=== PATIENT | female | born 1965 | race Caucasian/White ===

== ENCOUNTER → 2020-01-26 11:01 | Outpatient (BNVA) | payer MEDICAID, SELFPAY | PROVIDERS: Family Provider Family Medicine; PCP Family Medicine; Visit Provider Orthopaedic Surgery | DX: M16.0 Bilateral primary osteoarthritis of hip (principal) | CPT/HCPCS: 73522; 73523 ==

== ENCOUNTER → 2020-05-08 13:36 | Outpatient (BNVA) | payer MEDICAID, SELFPAY | PROVIDERS: Family Provider Family Medicine; PCP Family Medicine; Referring Provider Family Medicine; Visit Provider Specialist | DX: M16.11 Unilateral primary osteoarthritis, right hip (principal) | CPT/HCPCS: 73502 ==

== ENCOUNTER 2020-05-26 10:00 | Outpatient (CLI) | payer MEDICAID, SELFPAY | END 2020-05-26 10:01 | disposition home or self-care (01) | LOC: OPS 05-10 14:50 | PROVIDERS: Visit Provider Internal Medicine Cardiovascular Disease | DX: Z01.810 Encounter for preprocedural cardiovascular examination (principal) | CPT/HCPCS: 93005 ==

== ENCOUNTER → 2020-06-19 15:50 | Outpatient (BNVA) | payer MEDICAID, SELFPAY | PROVIDERS: Visit Provider Specialist | DX: M16.11 Unilateral primary osteoarthritis, right hip (principal) | CPT/HCPCS: 73502 ==

== ENCOUNTER → 2020-06-30 10:08 | Outpatient (BNVA) | payer MEDICAID, SELFPAY | PROVIDERS: Visit Provider Specialist | DX: Z11.59 Encounter for screening for other viral diseases (principal) | CPT/HCPCS: 87635 ==

== ENCOUNTER 2020-07-04 10:15 | Observation (INO) | payer MEDICAID, SELFPAY ==
[2020-05-26 11:30] VITALS: BMI 40.7
--- NOTE | 2020-05-26 11:38 | ECG_ITS ---
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 Measurements Intervals [place] Rate: 77 P: 72 ND: 192 QRS: -27 QRSD: 82 T: 100 QT: 378 QTc: 430 Interpretive Statements SINUS RHYTHM POSSIBLE ANTERIOR MYOCARDIAL INFARCTION [30 ms Q WAVE IN V3/V4, OR R < 0.2 mV IN V4], OF INDETERMINATE AGE MODERATE T-WAVE ABNORMALITY, CONSIDER LATERAL ISCHEMIA [-0.1+ mV T WAVE IN I/aVL/V5/V6] Compared to ECG 04/24/2016 16:21:19 T-wave abnormality now present Possible ischemia now present Myocardial infarct finding still present Electronically Signed On 05-26-2020 20:51:17 CDT by Kariem Cruz M.D. [id number]
[2020-05-26 14:15] LABS: Anion Gap 17.4 (5-19); Blood Urea Nitrogen 14 mg/dL (6-20); Calcium 9.3 mg/dL (8.5-10.5); Carbon Dioxide 27 mmol/L (22-29); Chloride 91 mmol/L (98-107); Glomerular Filtration Rate 103.8 mL/min (90-130); Glucose 364 mg/dL (65-115); Osmolality Calculated 283 mOsm/kg (285-295); Potassium 4.4 mmol/L (3.5-5.1); Sodium 131 mmol/L (136-145)
[2020-06-30 08:42] VITALS: BMI 39.7
--- NOTE | 2020-06-30 08:55 | ECG_ITS ---
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 Measurements Intervals [place] Rate: 75 P: 68 CO: 194 QRS: -31 QRSD: 108 T: 93 QT: 370 QTc: 416 Interpretive Statements SINUS RHYTHM MARKED LEFT AXIS DEVIATION [QRS AXIS < -30] NONSPECIFIC T-WAVE ABNORMALITY Compared to ECG 05/26/2020 11:50:43 Left-axis deviation now present Myocardial infarct finding no longer present Possible ischemia no longer present T-wave abnormality still present Electronically Signed On 06-30-2020 20:39:29 CDT by Pita Espinal M.D. [id number]
--- NOTE | 2020-06-30 09:34 | ANES.PREANE2 ---
Pre-Anesthetic Assessment Pre-Anesthetic Assessment: Height/Weight: Height 1.65 m Weight 108.409 kg Preop Diagnosis: Severe DJD Right Hip Proposed Procedure: Operation Date: 07/04/20 07:00 Proposed Procedures p Total Hip Arthroplasty 90949 M16.11(Right) - Ruth Sloan MD Familial anesthetic complications: NOne Social: Social History: Tobacco and No alcohol Exam: Pre-Anes Outpt Exam: alert, oriented x 3, clear to auscultation bilaterally and regular rate & rhythm Airway: Cervical ROM: WNL MP: 4 Dentition: False Additional comments: Large neck circumference, receding mandible Pulmonary: Pulmonary: Sleep apnea (cpap) CV/HEM: CV/HEM: HTN GI: GI: GERD Metabolic: Metabolic: DM and Morbid obesity Musc/skel: Musc/skel: OA/DJD Anesthetic Plan: ASA status: 3 Anesthesia: General Risk of > 500 ml blood loss (7ml/kg in children): No PFSH Anesthesia PFSH: Medical History Cervical disc disorder Cervical radicular pain Cervical spinal stenosis Cervical spondylosis COPD (chronic obstructive pulmonary disease) Diabetes mellitus Dysuria GERD (gastroesophageal reflux disease) Greater trochanteric bursitis of both hips Hyperlipidemia Hyperlipidemia Hypertension Lumbar spinal stenosis Osteoarthritis of right hip Type 2 diabetes mellitus Surgical History History of carpal tunnel release History of hysterectomy Status post hemilaminotomy Data Anesthesia CBC & Chem 7: 05/26/20 11:45 Cardiac Studies: No Data to Display
[2020-06-30 09:49] LABS: Basophils % 0.6 %; Eosinophils # 0.2 10^3/uL (0.0-0.8); Eosinophils % 3.5 %; Hematocrit 49.2 % (37.0-47.0); Hemoglobin 16.6 g/dL (11.5-15.3); Lymphocytes # 1.7 10^3/uL (0.8-4.8); Lymphocytes % 26.4 %; Mean Corpuscular HGB Conc 33.7 g/dL (30.0-36.0); Mean Corpuscular Hemoglobin 31.3 pg (28.0-34.0); Mean Corpuscular Volume 92.8 fL (81-99); Mean Platelet Volume 12.7 fL (7.4-10.4); Monocytes # 0.5 10^3/uL (0.2-0.9); Monocytes % 7.4 %; Neutrophils # 4.05 10^3/uL (1.8-7.7); Neutrophils % 61.6 %; Nucleated Red Blood Cells % 0 %; Platelet Count 196 10^3/cmm (130-400); White Blood Count 6.6 10^3/uL (4.0-10.0)
[2020-06-30 10:10] LABS: Alanine Aminotransferase 146 U/L (0-33); Albumin Level 4.2 g/dL (3.5-5.2); Alkaline Phosphatase 189 IU/L (35-105); Aspartate Amino Transferase 96 U/L (0-32); Blood Urea Nitrogen 13 mg/dL (6-20); Calcium 9.5 mg/dL (8.5-10.5); Carbon Dioxide 28 mmol/L (22-29); Chloride 96 mmol/L (98-107); Globulin 3.4 g/dL (1.3-4.6); Glomerular Filtration Rate 86.9 mL/min (90-130); Glucose 396 mg/dL (65-115); Osmolality Calculated 295 mOsm/kg (285-295); Sodium 134 mmol/L (136-145); Total Bilirubin 0.2 mg/dL (0.15-1.2); Total Protein 7.6 g/dL (6.6-8.7)
[2020-06-30 10:11] LABS: Anion Gap 14.8 (5-19); Potassium 4.8 mmol/L (3.5-5.1)
[2020-06-30 10:15] LABS: Add Urine Microscopic? YES; Bilirubin Urine Neg (Negative); Blood Urine Neg (Negative); Glucose Urine UA 4+ (Normal); Ketones Urine Negative (Negative); Nitrate Urine Negative (Negative); Protein Urine Neg (Negative); Urine Appearance Cloudy (CLEAR); Urine Color Yellow (Yellow); Urobilinogen Urine Norm (Negative)
[2020-06-30 10:16] LABS: Add Urine Culture? Yes; Bacteria Urine 3+ /hpf; Leukocyte Esterase Urine Trace (Negative); RBC Urine 0-4 /hpf (0-2); WBC Urine 40-55 /hpf (0-5)
[2020-07-04] VITALS (17 sets, daily range): BP systolic 93–151; BP diastolic 58–95; PULSE 76–96; RESP 15–23; TEMP 36.1–37.1; O2SAT 89–99
[2020-07-04] MEDS: CELEcoxib 200 mg Capsule 400 MG PO (06:33)
[2020-07-04] MEDS: sodium chloride 0.9% 1,000 ML 30 ML IV (06:40)
[2020-07-04 06:43] LABS: Glucose Point of Care 279 mg/dL (70-110)
--- NOTE | 2020-07-04 06:45 | W.PM.OPSUD ---
Surgery/Procedure H&P Update DATE OF PROCEDURE: July 04, 2020 DATE H&P PERFORMED: 06/19/20 H&P UPDATE INFORMATION: I have reviewed H&P completed within last 30 days, I have examined patient prior to procedure and H&P is in [facility] EMR on date indicated CHANGES TO PREVIOUS DOCUMENTATION: Patient had a positive UTI with bacteria, but this has been treated with Bactrim. PREOP DIAGNOSIS: Severe DJD Right Hip PLANNED PROCEDURE: Operation Date: 07/04/20 07:00 Proposed Procedures p Total Hip Arthroplasty 86368 M16.11(Right) - Ruth Sloan MD
[2020-07-04] MEDS: vancomycin 1,000 MG in sodium chloride 0.9% 250 ML 250 MG IV ×2 (06:46→14:29)
--- NOTE | 2020-07-04 06:46 | P.ANESUD_ITS ---
Pre-Anesthetic Update Pre-Anesthetic Assessment: Date of Surgery/Procedure: 07/04/20 Preop Radha gnosis: Severe DJD Right Hip Proposed Procedure: Operation Date: 07/04/20 07:00 Proposed Procedures p Total Hip Arthroplasty 05091 M16.11(Right) - Ruth Sloan MD Any changes to Pre-Anesthetic Assessment?: No Last Intake: Intake Last Liquid Date 07/03/20 Last Liquid Time 20:00 Last Solid Date 07/03/20 Last Solid Time 20:00 Labs Last 48hrs: Laboratory Results - last 48 hr 07/04/20 06:29 POC Glucose 279 Vitals: Temperature 97 F L 07/04/20 06:11 Temperature Source Temporal Artery S can 07/04/20 06:11 Respiratory Rate 18 07/04/20 06:11 Oxygen Delivery Me thod 07/04/20 06:11 Exam: Pre-Anes Outpt Exam: alert, oriented x 3, clear to auscultation bilaterally and regular rate & rhythm Other Pertinent Information: Other Pertinent Information: Patient states her stress test was denied by insurance. She states her EKG from her first pre-op was probably incorrect because a lead kept falling off during recording. 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 A repeat EKG did not show prior DE. I informed patient that despite the atypical chest pain and normal EKG, she does have some risk factors associated with increased cardiac risk. Cardiac Studies: No Data to Display
[2020-07-04] MEDS: insulin regular-human 100 units/1 mL 10 UNIT IVP (06:59)
[2020-07-04] MEDS: vancomycin 1,000 MG SDV 1000 MG IRRIGATION (08:26)
[2020-07-04] MEDS: vancomycin 1,000 MG SDV 1000 MG XX (08:26)
--- NOTE | 2020-07-04 09:54 | XR_ITS ---
WS: [id number] PELVIS TECHNIQUE: 1 view(s) of the pelvis CLINICAL INFORMATION: Status post total hip arthroplasty COMPARISON: June 19, 2020 FINDINGS: Postoperative changes right JOSE. Moderate joint space narrowing left hip. Normal anatomic alignment. Right JOSE appears satisfactory. IMPRESSION: Recent postoperative right JOSE with normal alignment in good position.
--- NOTE | 2020-07-04 10:09 | P.OP_ITS ---
Operative Report Date of procedure: July 04, 2020 Pre-op Diagnosis: Severe DJD Right Hip Post-op diagnosis: same Post-op Findings: Severe degenerative osteoarthritic changes with osteophytes Procedure Done: Right total hip arthroplasty utilizing the following components: The Fromberg Accolade II total hip system with a Trident Tritanium acetabulum. Implants: Trident II Tritanium solid back acetabular shell size 52 mm by E alpha code with an MDM cementless liner inner diameter 42 mm by E alpha code. A size 4 Accolade II femoral stem with a 127 degree neck angle with a size 28 mm outer diameter by +0 mm femoral offset ceramic V40 and an MDM insert size 28 mm inner diameter by size 42E Specimens removed/disposition: Femoral head Pathology: other (Femoral head) Surgeon: Ruth Sloan Software Requirements Engineer: [facility] [place] [facility] [place] Anesthesia: General (intubated, ASA 3) Estimated blood loss (mL): 500 IV fluids (mL): 2,000 Urine output (mL): 150 Complications: None Findings: Postimplantation, the hip was stable at 90 degrees of flexion with 60 degrees of internal rotation and 20 degrees of adduction. It was also stable to toe hang and external rotation. Leg lengths appear to be restored. Condition: stable Disposition: PACU (Then to floor) Brief History: This 55-year-old woman presented with complaints of severe right hip pain interfering with her activities of daily living. At the time of her surgery. Nonoperative measures were unsuccessful in treating the patient's pain. She had significant limitations in walking. Procedure: Patient was brought to the operating theater. She was transferred to the operating room table and subsequently administered a general anesthetic intubated, ASA 3. Following administration of adequate anesthesia, the patient was placed in full lateral position and held in position with a pegboard. Also, the patient had minimal movement in her right lower extremity preoperatively. The patient's right lower extremity was then prepped and draped in usual fashion utilizing DuraPrep. It was draped free. Following prepping and draping a surgical pause was performed. At the time of surgical pause, we identified the site and side of surgery. We also identified the patient and preoperative surgical markings. Confirmation was made of equipment availability. Additionally, the patient's preoperative IV antibiotic, vancomycin 1 g, as well as TXA, was confirmed as being given in a timely fashion and being the appropri ate. TXA was again administered at the conclusion of the procedure. Following the surgical pause, an incision was made centering over the patient's greater trochanter continuing proximally and distally as necessary to allow access to the hip joint. Dissection continued through skin and soft tissues using a scalpel, and hemostasis was obtained using electrocautery. The tensor fascia jorge was identified and incised longitudinally. Sciatic nerve was identified and protected throughout the surgical procedure. Exposure was somewhat difficult secondary to the patient's obesity. A Charnley U retractor was placed after the tensor fascia jorge had been incised longitudinally, and the sciatic nerve had been identified. The hip was internally rotated, and the piriformis muscle was identified and tagged. Piriformis muscle along with the remaining short external rotators were then incised from the posterior aspect of the hip joint. These were retracted posteriorly. The capsule was entered in a T-type fashion with the edges being tagged. There were noted to be significant osteophytes and a second labrum about the acetabulum. These were removed, and the hip was dislocated Following hip dislocation, a femoral neck osteotomy was accomplished in the appropriate position. We then evaluated the acetabulum. The femur was retracted anteriorly. Soft tissues were retracted and further la mary kay was removed. We then began reaming. Reaming was accomplished sequentially. We reamed to a size 51 to allow for a size 52 acetabular shell. The acetabulum was impacted into position. The dome hole was filled. Also, we confirmed that the acetabular insert was completely seated prior to addressing the femur. After the acetabulum was in appropriate position, we placed the MDM liner without difficulty. The cup was noted to seat nicely and had good fixation upon impact. Attention was directed to the proximal femur. The proximal femur was lifted out of the wound. A canal finder was passed after the box chisel. The reamer was used to lateralize. We then began broaching. We broached sequentially and had excellent fit and fill with the size 4 Accolade II 127 degree neck angle stem. Initially, we did attempt to go to a size 5, however, this made the hip too tight even with the shortest neck combination. Therefore, we again placed the size 4 to an appropriate degree of fit and fill. Calcar reaming was then accomplished. A trial reduction was accomplished with a +0 mm femoral head inside the appropriate MDM insert. With this in place, we had the above stabilities, and at that time, we felt that we had restored leg lengths. We also felt that we had excellent stability noted above. Therefore, trial components were removed after the hip was dislocated. The size 4 Accolade II 127 degree neck angle hip stem was impacted into position without difficulty and onto this was placed a +0 mm offset femoral head with the appropriate MDM liner. The hip was then reduced without difficulty. With this construct, we had the above-noted stability. The stem was noted to seat nicely prior to placement of the femoral head. The wound was copiously irrigated with 20 mL of Betadine and 500 mL of normal saline mixed together. Subsequently, we suctioned this out and irrigated the wound copiously with lactated Ringer's. Following reduction of the prosthesis once again, we confirmed the stability of the hip. Leg lengths were also felt to be satisfactory. Being satisfied with the prosthesis, attention was directed to closure. Closure was accomplished with 0 Vicryl in the capsular tissues. Piriformis was reattached with 0 Vicryl as well. Tensor fascia jorge was closed with 0 Vicryl in an interrupted fashion. The subcutaneous tissues were closed with a combination of 0 Vicryl and 2-0 Monocryl. Vancomycin powder and a Surgi-Wolf thrombin mixture was placed into the wound as well. The skin was closed with a running 3-0 Monocryl followed by Exofin and Steri-Strips. This was covered with Telfa and Tegaderm. The patient was placed in an abduction pillow. She was returned the Recovery Room in a satisfactory condition and will be discharged to the floor for postoperative rehabilitation and pain management. There were no complications. Associated Problem List Diagnoses (1) Osteoarthritis of right hip: Qualifiers: Osteoarthritis type: primary Qualified Code(s): M16.11 - Unilateral primary osteoarthritis, right hip (2) Obesity, Class III, BMI 40-49.9 (morbid obesity):
[2020-07-04] MEDS: oxyCODONE 5 mg IR Tab/Cap PO (11:16)
--- NOTE | 2020-07-04 11:21 | P.CONIM_ITS ---
Providers/Reason For Consult Consulting Physican/Specialty*: Batsheva Saucedo, hospitalist Reason for Consult*: Insulin-dependent diabetes mellitus type 2 Requesting Physcian: Dr. Sloan, orthopedic surgery Attending Physician: Ruth Sloan MD History of Present Illness History of Present Illness Millie Leblanc is a 54 year old female with a past medical history of insulin- dependent diabetes mellitus that presented to the hospital today for scheduled total hip arthroplasty. Patient reported that she had been doing well prior to surgery with no recent issues. She denies any recent fever, no recent illness. Patient reports that she has not had any exposure to anyone under investigation are positive for COVID-19. Patient denies any recent chest pain or shortness of breath. She reports that she continues to smoke about 4 cigarettes/day but is not on any home oxygen. She denies any recent hospitalizations or procedures. Review of Systems Const: Denies: fever(s) or chills Eyes: Denies: change in vision ENMT: Denies: nasal congestion Card: Denies: chest pain, palpitations or edema Resp: Denies: dyspnea, productive cough or hemoptysis GI: Denies: abdominal pain, nausea, vomiting, diarrhea, constipation, hematochezia or melena : Denies: dysuria or hematuria Musc: Reports: extremity pain (Right lower extremity); Denies: muscle cramps Skin/Breast: Denies: rash or new lesions Neuro: Denies: headache(s) or dizziness Psych: Denies: anxiety or depression Endo: Denies: polyuria or hot flashes [place]/Lymph: Denies: easy bruising or easy bleeding Meds/Allergies Home Medications and Allergies Home Medications Medication Instructions Recorded Confirmed Last Taken Type diclofenac sodium 75 mg 75 mg PO BID 01/26/20 07/04/20 07/03/20 History tablet,delayed release doxepin 50 mg capsule 50 mg PO DAILY 01/26/20 07/04/20 07/03/20 History duloxetine 60 mg capsule,delayed 60 mg PO DAILY 01/26/20 07/04/20 07/03/20 History release sprinkle fluoxetine 20 mg capsule 20 mg PO DAILY 01/26/20 07/04/20 07/03/20 History fluticasone propionate 45 2 puff INHALATION BID 01/26/20 07/04/20 07/03/20 History mcg-salmeterol 21 mcg/actuation HFA inhaler insulin degludec 100 unit/mL (3 160 unit SUBCUT DAILY 01/26/20 07/04/20 07/03/20 20:00 History mL) subcutaneous pen 160 units lisinopril 20 mg tablet 20 mg PO DAILY 01/26/20 07/04/20 07/03/20 History pantoprazole 40 mg tablet,delayed 40 mg PO DAILY 01/26/20 07/04/20 07/03/20 History release pregabalin 200 mg capsule 200 mg PO DAILY 01/26/20 07/04/20 07/03/20 History cyclobenzaprine 10 mg PO TID 05/26/20 07/04/20 07/03/20 History insulin aspart U-100 [Novolog See Rx Instructions .ROUTE .COMPLEX 05/26/20 07/04/20 07/03/20 20:00 History Flexpen U-100 Insulin] 40 units oxycodone 20 mg PO QID PRN 05/26/20 07/04/20 07/03/20 History metformin 1,000 mg tablet 1,000 mg PO BID tab 06/12/20 07/04/20 07/03/20 08:00 History sulfamethoxazole 800 1 tab PO BID #20 tab 07/01/20 07/04/20 07/03/20 Rx mg-trimethoprim 160 mg tablet Allergies Allergy/AdvReac Type Severity Reaction Status Date / Time ibuprofen Allergy Intermediate ALGY-Hives Verified 06/19/20 16:26 naproxen [From Aleve] Allergy Intermediate ALGY-Rash Verified 06/19/20 16:26 Penicillins Allergy Intermediate ALGY-Hives Verified 06/19/20 16:26 Current Medications Current Medications Generic Name Dose Route Start Last Admin Trade Name Freq PRN Reason Stop Dose Admin Oxycodone HCl 5 mg 07/04/20 09:54 07/04/20 11:16 Oxycodone Ir PO 5 mg Q4H PRN Administration MODERATE PAIN PFSH Acute PFSH: Medical History (Updated 07/04/20 @ 11:25 by Batsheva Saucedo DO) Cervical spinal stenosis With cervical radicular pain and cervical spondylosis COPD (chronic obstructive pulmonary disease) GERD (gastroesophageal reflux disease) Greater trochanteric bursitis of both hips Hyperlipidemia Hypertension Lumbar spinal stenosis Osteoarthritis of right hip Type 2 diabetes mellitus Insulin-dependent Surgical History History of carpal tunnel release History of hysterectomy Status post hemilaminotomy Family History Other Unknown family medical history Social History (Updated 07/04/20 @ 11:26 by Batsheav Saucedo DO) Smoking and tobacco status: current every day smoker cigarettes Packs smoked per day: 0.25 Number of cigarettes per day: 1-5 Alcohol intake: never Substance/Drug Use: never Supplemental PFSH Information: Patient reports that she is adopted, unknown family medical history Vitals/I&O/Wt Last Vital Signs Temp 98.2 F 07/04/20 10:25 Pulse 84 07/04/20 10:25 Resp 18 07/04/20 11:16 BP 108/83 07/04/20 10:25 Pulse Ox 95 07/04/20 11:16 07/03/20 07/04/20 07/04/20 22:59 06:59 14:59 Intake Total 100 / 100 470 / 470 Output Total 800 / 800 Balance 100 / 100 -330 / -330 Physical Exam Const: COMMON NORMALS: patient oriented x3 and alert GENERAL APPEARANCE: cooperative ORIENTATION/CONSCIOUSNESS: Yes awake, Yes oriented to person, Yes oriented to place and Yes oriented to time HENMT: COMMON NORMALS: normocephalic and atraumatic HEAD & SCALP: normocephalic and atraumatic Eye: COMMON NORMALS: Equal, round and reactive pupils present PUPIL: Yes Equal, round and reactive pupils present Neck/C-Spine: COMMON NORMALS: supple GENERAL: Yes normal visual inspection Resp: COMMON NORMALS: normal respiratory effort and clear to auscultation bilaterally EFFORT & INSPECTION: Yes able to speak in complete sentences AUSCULTATION: clear to auscultation bilaterally, no rhonchi and no wheezes Cardio: COMMON NORMALS: regular rate, regular rhythm and No murmurs present (Cardio) RATE: regular rate RHYTHM: regular rhythm GI: COMMON NORMALS: Soft to palpation and non-tender INSPECTION: No abdomin al distension AUSCULTATION: Yes normoactive bowel sounds PALPATION: Yes Soft to palpation : BIMANUAL EXAM - ADNEXA, OTHER: Yes Other (Riddle catheter in place) Extremity: COMMON NORMALS: no clubbing, cyanosis or edema and no calf tenderness Neuro: COMMON NORMALS: patient oriented x3, CN's II-XII intact bilaterally, moves all extremities and no focal motor deficits SENSORIUM/ORIENTATION: Yes alert, Yes oriented to person, Yes oriented to place and Yes oriented to time SPEECH: speech normal Psych: COMMON NORMALS: mental status grossly normal and cooperative Skin: NARRATIVE SKIN EXAM: Postoperative dressing in place in the right hip Urinary Catheter Management^: f: Cath Placed During This Visit: yes Urinary Catheter Date of Insertion: 07/04/20 Urinary Catheter Time of Insertion: 07:25 A&P Assessment and plan (1) Osteoarthritis of right hip: Status post right total hip arthroplasty performed by Dr. Sloan Continue to follow with postoperative care Status: Acute Qualifiers: Osteoarthritis type: primary Qualified Code(s): M16.11 - Unilateral primary osteoarthritis, right hip (2) Diabetes mellitus: Patient reports being on Tresiba 160 units daily. This is a non-formulary medication and question if patient is having full absorption due to the large dose that she is taking at home. We will decrease her to 50 units but incrase it to twice daily to see if she has better absorption of medication. Will increase as needed but do not wish to cause any hypoglycemic event in the acute care setting. Sliding scale insulin, reports typically 30 to 40 units with meals. We will schedule her at 15 units with each meal and placed on a high-dose sliding scale insulin. 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
[2020-07-04 12:20] LABS: Glucose Point of Care 269 mg/dL (70-110)
[2020-07-04] MEDS: chlorhexidine gluconate 0.12% Btl 473 mL 30 ML MUCOUS MEM ×3 (12:39→20:49)
[2020-07-04] MEDS: TRAMadol 50 mg Tablet PO ×2 (12:39→17:35)
[2020-07-04] MEDS: oxyCODONE 5 mg IR Tab/Cap 20 MG PO ×2 (14:30→20:48)
[2020-07-04] MEDS: cyclobenzaprine 10 mg Tablet PO ×2 (14:30→20:48)
[2020-07-04] MEDS: enoxaparin 40 mg/0.4 mL Syringe SUBCUT (14:30)
[2020-07-04 17:06] LABS: Glucose Point of Care 259 mg/dL (70-110)
[2020-07-04] MEDS: calcium carbonate 500 mg Chew Tablet 1000 MG PO (17:34)
[2020-07-04] MEDS: metformin 500 mg Tablet 1000 MG PO (17:36)
[2020-07-04] MEDS: diclofenac 75 mg DR Tablet PO (17:36)
[2020-07-04] MEDS: sulfamethoxazole-trimeth DS 160-800 mg Tablet 1 TAB PO (17:36)
[2020-07-04] MEDS: iron polysaccharide complex 150 mg Capsule PO (17:36)
[2020-07-04] MEDS: insulin glargine 100 units/1 mL 50 UNIT SUBCUT (18:38)
[2020-07-04 21:11] LABS: Glucose Point of Care 354 mg/dL (70-110)
[2020-07-05] VITALS (8 sets, daily range): BP systolic 92–117; BP diastolic 60–70; PULSE 71–90; RESP 16–20; TEMP 36.4–37.1; O2SAT 92–96
[2020-07-05] MEDS: TRAMadol 50 mg Tablet PO ×2 (01:39→12:26)
--- NOTE | 2020-07-05 03:00 | ANE.PACU2 ---
Inpatient post-anesthesia follow up: Airway intact: Yes Vital signs: Temperature 98.7 F Pulse Rate 79 Respiratory Rate 17 Blood Pressure 92/60 Pulse Oximetry 95 Oxygen Delivery Me thod Room Air Oxygen Flow Rate 2 Fraction of Inspir ed Oxygen Hydration adequate: Yes Nausea and vomiting: No Pain level: 4 Mental status: Baseline
[2020-07-05 06:20] LABS: Basophils % 0.2 %; Eosinophils # 0.3 10^3/uL (0.0-0.8); Eosinophils % 3.1 %; Hematocrit 39.5 % (37.0-47.0); Hemoglobin 12.5 g/dL (11.5-15.3); Lymphocytes # 1.6 10^3/uL (0.8-4.8); Lymphocytes % 19.7 %; Mean Corpuscular HGB Conc 31.6 g/dL (30.0-36.0); Mean Corpuscular Hemoglobin 31.2 pg (28.0-34.0); Mean Corpuscular Volume 98.5 fL (81-99); Mean Platelet Volume 12.4 fL (7.4-10.4); Monocytes # 0.8 10^3/uL (0.2-0.9); Neutrophils # 5.41 10^3/uL (1.8-7.7); Neutrophils % 66.6 %; Nucleated Red Blood Cells % 0 %; Platelet Count 144 10^3/cmm (130-400); Red Blood Count 4.01 10^6/uL (4.1-5.3); Red Cell Distribution Width 12.9 % (12.1-15.1); White Blood Count 8.1 10^3/uL (4.0-10.0)
[2020-07-05] MEDS: insulin glargine 100 units/1 mL 50 UNIT SUBCUT (06:48)
[2020-07-05 07:07] LABS: Anion Gap 14.2 (5-19); Blood Urea Nitrogen 13 mg/dL (6-20); Calcium 8.6 mg/dL (8.5-10.5); Carbon Dioxide 21 mmol/L (22-29); Chloride 103 mmol/L (98-107); Glomerular Filtration Rate 57.6 mL/min (90-130); Glucose 231 mg/dL (65-115); Osmolality Calculated 285 mOsm/kg (285-295); Potassium 4.2 mmol/L (3.5-5.1); Sodium 134 mmol/L (136-145)
[2020-07-05] MEDS: sennosides-docusate Tablet 2 TAB PO (09:22)
[2020-07-05] MEDS: lisinopril 20 mg Tablet PO (09:23)
[2020-07-05] MEDS: metformin 500 mg Tablet 1000 MG PO (09:23)
[2020-07-05] MEDS: cyclobenzaprine 10 mg Tablet PO ×2 (09:23→14:59)
[2020-07-05] MEDS: iron polysaccharide complex 150 mg Capsule PO (09:24)
[2020-07-05] MEDS: duloxetine 60 mg Capsule PO (09:24)
[2020-07-05] MEDS: calcium carbonate 500 mg Chew Tablet 1000 MG PO (09:24)
[2020-07-05] MEDS: sulfamethoxazole-trimeth DS 160-800 mg Tablet 1 TAB PO (09:24)
[2020-07-05] MEDS: diclofenac 75 mg DR Tablet PO (09:24)
[2020-07-05] MEDS: multivitamin therapeutic Tablet 1 TAB PO (09:24)
[2020-07-05] MEDS: cholecalciferol (vitamin D3) 1,000 unit Tablet 1000 UNIT PO (09:25)
[2020-07-05] MEDS: pantoprazole DR 40 mg Tablet PO (09:25)
[2020-07-05] MEDS: chlorhexidine gluconate 0.12% Btl 473 mL 30 ML MUCOUS MEM ×2 (09:25→12:26)
[2020-07-05] MEDS: pregabalin 100 mg Capsule 200 MG PO (09:25)
[2020-07-05] MEDS: fluoxetine 20 mg Capsule PO (09:25)
--- NOTE | 2020-07-05 09:39 | PC.RESP ---
SMOKING CESSATION AND PULMONARY REHAB INFORMATION SENT TO PATIENT.
[2020-07-05 10:01] LABS: Glucose Point of Care 301 mg/dL (70-110)
[2020-07-05 10:01] LABS: Glucose Point of Care 220 mg/dL (70-110)
[2020-07-05 11:21] LABS: Glucose Point of Care 282 mg/dL (70-110)
--- NOTE | 2020-07-05 11:51 | P.PN_ITS ---
Subjective Subjective: Interval history: Patient awake sitting in the chair at time of exam this morning. She reported the pain is improved today. Discussed with her plan for continued insulin dosing at home, may consider transitioning to split twice a day dosing with long-acting insulin, monique Vitals/I&O/Wt Last Vital Signs Temp 98.7 F 07/05/20 11:26 Pulse 86 07/05/20 11:26 Resp 20 H 07/05/20 11:26 BP 110/70 07/05/20 11:26 Pulse Ox 95 07/05/20 07:45 07/04/20 07/05/20 07/05/20 22:59 06:59 14:59 Intake Total 700 / 1170 600 / 1770 Output Total 1000 / 1800 2400 / 4200 Balance -300 / -630 -1800 / -2430 Physical Exam Const: COMMON NORMALS: patient oriented x3 and alert GENERAL APPEARANCE: cooperative ORIENTATION/CONSCIOUSNESS: Yes awake, Yes oriented to person, Yes oriented to place and Yes oriented to time HENMT: COMMON NORMALS: normocephalic and atraumatic HEAD & SCALP: normocephalic and atraumatic Eye: COMMON NORMALS: Equal, round and reactive pupils present PUPIL: Yes Equal, round and reactive pupils present Neck/C-Spine: COMMON NORMALS: supple GENERAL: Yes normal visual inspection Resp: COMMON NORMALS: normal respiratory effort and clear to auscultation bilaterally EFFORT & INSPECTION: Yes able to speak in complete sentences AUSCULTATION: clear to auscultation bilaterally, no rhonchi and no wheezes Cardio: COMMON NORMALS: regular rate, regular rhythm and No murmurs present (Cardio) RATE: regular rate RHYTHM: regular rhythm GI: COMMON NORMALS: Soft to palpation and non-tender INSPECTION: No abdominal distension AUSCULTATION: Yes normoactive bowel sounds PALPATION: Yes Soft to palpation : BIMANUAL EXAM - ADNEXA, OTHER: Yes Other (Riddle catheter in place) Extremity: COMMON NORMALS: no clubbing, cyanosis or edema and no calf tenderness Neuro: COMMON NORMALS: patient oriented x3, CN's II-XII intact bilaterally, moves all extremities and no focal motor deficits SENSORIUM/ORIENTATION: Yes alert, Yes oriented to person, Yes oriented to place and Yes oriented to time SPEECH: speech normal Psych: COMMON NORMALS: mental status grossly normal and cooperative Skin: NARRATIVE SKIN EXAM: Postoperative dressing in place in the right hip Urinary Catheter Management^: f: Cath Placed During This Visit: yes, but has since been removed by the nurse Reason for Continuing Indwelling Catheter: Decision to DC Catheter Urinary Catheter Date of Insertion: 07/04/20 Urinary Catheter Time of Insertion: 07:25 Date Urinary Catheter Removed: 07/05/20 Time Urinary Catheter Discontinued: 06:15 Data : 07/05/20 05:48 07/05/20 05:48 A&P Assessment and plan (1) Osteoarthritis of right hip: Status post right total hip arthroplasty performed by Dr. Sloan Continue to follow with postoperative care Status: Acute Qualifiers: Osteoarthritis type: primary Qualified Code(s): M16.11 - Unilateral primary osteoarthritis, right hip (2) Diabetes mellitus: Patient reports being on Tresiba 160 units daily. Converted to Lantus and increase to 60 units twice daily at this time as Tresiba is a nonformulary medication. 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
[2020-07-05] MEDS: enoxaparin 40 mg/0.4 mL Syringe SUBCUT (12:25)
--- NOTE | 2020-07-05 13:49 | PM.DCS ---
Discharge Providers Date of Admission: 07/04/20 10:15 Date of Discharge: July 05, 2020 Attending Provider at Admission: Ruth Sloan MD Attending Provider at Discharge: Ruth Sloan MD Diagnoses at Discharge Discharge Diagnosis (1) Osteoarthritis of right hip: Status: Acute Qualifiers: Osteoarthritis type: primary Qualified Code(s): M16.11 - Unilateral primary osteoarthritis, right hip (2) Diabetes mellitus: Status: Acute Problem details: Poorly controlled, insulin-dependent Qualifiers: Diabetes mellitus type: type 2 Diabetes mellitus detention insulin use: with long chain dyeing machine operator use Diabetes mellitus complication status: with other specified complication Qualified Code(s): E11.69 - Type 2 diabetes mellitus with other specified complication; Z79.4 - buttermaker continuous churn (current) use of insulin (3) Obesity, Class III, BMI 40-49.9 (morbid obesity): Status: Acute (4) Hyperlipidemia: Status: Acute Qualifiers: Hyperlipidemia type: mixed hyperlipidemia Qualified Code(s): E78.2 - Mixed hyperlipidemia Reason for Visit Reason for Visit: Osteoarthritis Right Hip Brief History: Patient presented for right total hip arthroplasty Hospital Course Hospital Course: Admitted for same-day surgery. She underwent the following procedure: Right total hip arthroplasty utilizing the following components: The Anitha Accolade II total hip system with a Trident Tritanium acetabulum with a Trident II Tritanium solid back acetabular shell size 52 mm by E alpha code with an MDM cementless liner inner diameter 42 mm by E alpha code. A size 4 Accolade II femoral stem with a 127 degree neck angle with a size 28 mm outer diameter by +0 mm femoral offset ceramic V40 and an MDM insert size 28 mm inner diameter by size 42E. Patient was placed on the floor under observation following the surgical procedure. She worked with physical therapy. On the first postoperative day, the patient appeared ready for discharge. At the time she was seen, she was told to work with physical therapy on getting in and out of the car and home exercises. Plans were made for her discharge home that day. Discharge Summary: Patient will be discharged home on postoperative day 1. Unfortunately, her insurance will not cover home physical therapy, but she has exercises and will continue to work on these at home. Physical Exam Const: COMMON NORMALS: no acute distress, average body habitus, patient oriented x3 and alert GENERAL APPEARANCE: cooperative and comfortable ORIENTATION/CONSCIOUSNESS: Yes awake HENMT: COMMON NORMALS: normocephalic and atraumatic HEAD & SCALP: normocephalic and atraumatic Eye: GENERAL EYE: appearance normal, both eyes and all related structures Chest: COMMONS NORMALS: normal inspection of the chest Resp: COMMON NORMALS: normal respiratory effort EFFORT & INSPECTION: Yes able to speak in complete sentences and Yes symmetric chest movement Extremity: RIGHT LOWER EXTREMITY: Yes hip joint (Incision is evaluated. There is no evidence of drainage. There is minimal to no bruising or swelling. The dressing is intact.) Right hip: Yes inspection (Patient is able to get up and down from chair easily.), Yes palpation (Minimal to no tenderness.), Yes ROM (Not evaluated.) and Yes neurovascular exam (Intact distal to the surgical site with no evidence of DVT.) Neuro: COMMON NORMALS: patient oriented x3 SENSORIUM/ORIENTATION: Yes alert Psych: COMMON NORMALS: mental status grossly normal APPEARANCE: Yes grossly normal ATTITUDE: Yes calm and Yes engaged ATTENTION/CONCENTRATION: Yes attention grossly intact Skin: COMMON NORMALS: no rashes or lesions noted GENERAL SKIN EXAM: no rashes or lesions noted Urinary Catheter Management^: f: Cath Placed During This Visit: yes, but has since been removed by the nurse Reason for Continuing Indwelling Catheter: Decision to DC Catheter Urinary Catheter Date of Insertion: 07/04/20 Urinary Catheter Time of Insertion: 07:25 Date Urinary Catheter Removed: 07/05/20 Time Urinary Catheter Discontinued: 06:15 Discharge Data Data Completed and Pending: Completed Studies During Hospitalization Category Date Time Status XR pelvis 1-2V* 7 2170 Routine Exams 07/04/20 09:54 Completed Pending at discharge Category Date Time Status Complete Blood Co unt w/Auto Lab 07/06/20 04:00 Uncollected Complete Blood Co unt w/Auto Lab 07/07/20 04:00 Uncollected Pathology: Surgic al [PTH] Routine Pth 07/04/20 09:43 Received Labs from last 24 hours 07/05/20 07/05/20 07/05/20 11:15 09:40 06:30 WBC RBC Hgb Hct MCV MCH MCHC RDW Plt Count MPV Neut % (Auto) Lymph % (Auto) [place] % (Auto) Eos % (Auto) Baso % (Auto) Neut # (Auto) Lymph # (Auto) [place] # (Auto) Eos # (Auto) Baso # (Auto) Nucleated RBC % (a uto) Nucleated RBCs # Sodium Potassium Chloride Carbon Dioxide Anion Gap BUN Creatinine GFR Calculation Glucose POC Glucose 282 301 220 Calculated Osmolal ity Calcium 07/05/20 07/05/20 07/04/20 05:48 05:48 21:06 WBC 8.1 RBC 4.01 L Hgb 12.5 Hct 39.5 MCV 98.5 MCH 31.2 MCHC 31.6 RDW 12.9 Plt Count 144 MPV 12.4 H Neut % (Auto) 66.6 Lymph % (Auto) 19.7 [place] % (Auto) 10.0 Eos % (Auto) 3.1 Baso % (Auto) 0.2 Neut # (Auto) 5.41 Lymph # (Auto) 1.6 [place] # (Auto) 0.8 Eos # (Auto) 0.3 Baso # (Auto) 0.0 Nucleated RBC % (a uto) 0 Nucleated RBCs # 0.0 Sodium 134 L Potassium 4.2 Chloride 103 Carbon Dioxide 21 L Anion Gap 14.2 BUN 13 Creatinine 1.0 H GFR Calculation 57.6 L Glucose 231 H POC Glucose 354 Calculated Osmolal ity 285 Calcium 8.6 07/04/20 16:53 WBC RBC Hgb Hct MCV MCH MCHC RDW Plt Count MPV Neut % (Auto) Lymph % (Auto) [place] % (Auto) Eos % (Auto) Baso % (Auto) Neut # (Auto) Lymph # (Auto) [place] # (Auto) Eos # (Auto) Baso # (Auto) Nucleated RBC % (a uto) Nucleated RBCs # Sodium Potassium Chloride Carbon Dioxide Anion Gap BUN Creatinine GFR Calculation Glucose POC Glucose 259 Calculated Osmolal ity Calcium Vitals: Last Vital Signs Temp 98.7 F 07/05/20 11:26 Pulse 86 07/05/20 11:26 Resp 20 H 07/05/20 11:26 BP 110/70 07/05/20 11:26 Pulse Ox 95 07/05/20 07:45 Discharge Plan Discharge Patient Disposition: Home Condition: Stable Prescriptions: New tramadol 50 mg Tablet 50 mg PO Q4H PRN (Reason: Moderate Pain) 7 Days Qty: 50 RF: 0 acetaminophen 500 mg Tablet 1,000 mg PO Q8H 15 Days Qty: 1 RF: 0 Continued Tresiba FlexTouch U-100 100 unit/mL (3 mL) insulin pen 160 unit SUBCUT DAILY RF: 0 Advair HFA 45-21 mcg/actuation HFA aerosol inhaler 2 puff INHALATION BID RF: 0 diclofenac sodium 75 mg tablet,delayed release (DR/EC) 75 mg PO BID RF: 0 doxepin 50 mg capsule 50 mg PO DAILY RF: 0 duloxetine 60 mg capsule, delayed rel sprinkle 60 mg PO DAILY RF: 0 fluoxetine 20 mg capsule 20 mg PO DAILY RF: 0 lisinopril 20 mg tablet 20 mg PO DAILY RF: 0 pregabalin [Lyrica] 200 mg capsule 200 mg PO DAILY RF: 0 pantoprazole 40 mg tablet,delayed release (DR/EC) 40 mg PO DAILY RF: 0 metformin 1,000 mg tablet 1,000 mg PO BID RF: 0 sulfamethoxazole-trimethoprim [Bactrim DS] 800-160 mg tablet 1 tab PO BID Qty: 20 RF: 0 cyclobenzaprine 10 mg tablet 10 mg PO TID RF: 0 insulin aspart U-100 [Novolog Flexpen U-100 Insulin] 100 unit/mL (3 mL) insulin pen See Rx Instructions .ROUTE .COMPLEX RF: 0 oxycodone 20 mg tablet 20 mg PO QID PRN (Reason: Pain) RF: 0 Discharge Orders: Discharge Order (Routine); Ordered 07/05/20 Ordered By: Ruth Sloan Other Ambulatory Orders: DME: Walker (Order) Location: None Selected Ordered By: Ruth Sloan Referrals: [facility] [place] Home Care ([facility]) [Outside] Ruth Sloan MD [Physician] - 07/19/20 Discharge Diet: Advance as tolerated and Usual diet Discharge Activity: Limit activity as instructed, Use walker/crutches as instructed and As per PT/OT instructions Activity Restrictions/Additional Instructions: Posterior hip precautions to be continued for 3 full months. You may remove or change dressing as needed. Weightbearing as tolerated with walker. 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
--- NOTE | 2020-07-05 14:09 | PC.CHAP ---
Pastoral Care Encounter/Spiritual Assessment Type of Contact [] Declined locksmith visit [] Patient/Family/Request visit [] Outpatient visit [] Follow-up visit [] Physician referral [] Code/Alert [X] Routine visit [] Staff referral [] Actively dying [] Patient sleeping [] Family support [] [] Out of room [] Palliative care [] [] Receiving care in room [] Pre-surgical visit [] Trauma [] Long length of stay [] ICU visit [] Other: Relational/Emotional Strength [] Patient feels connected with others/family/visitors/staff [] Distress [] Loneliness/isolation [] Abandonment Spirituality of Patient [] Person of Komal [] Attends Roman Catholic of their Komal [] Believes in Prayer [] Reads Bible or Orthodox materials [] There are Spiritual issues to be addressed Consulting Solution Manager Interventions [] Prayer [] Active listening [] Non-anxious presence [] Spiritual/emotional support [] Crisis/trauma care [] Spiritual counseling [] Bereavement support [] Provided bereavement packet [] Provided Bible/devotional materials [] Provided toy/stuffed animal, coloring book to patient or family member [] Provided Communion [] Anointing/[place] [] Salvation [] Completed spiritual assessment [] Other: Impact on Illness or Injury [] Angry [] Fearful [] Anxious [] Often cries [] Exhaustion [] Unable to work [] Unable to attend christian [] Unable to walk/stand [] Unable to read [] Unable to drive [] Unable to eat/drink [] Unable to sleep [] Unable to be with family [] Patient intubated [] Other: Summary Time spent with patient
[2020-07-05] MEDS: oxyCODONE 5 mg IR Tab/Cap 20 MG PO (15:38)
== END 2020-07-05 16:26 | disposition home or self-care (01) ==
LOC: MEDSURG 10:30
PROVIDERS: Anesthesiology; Admitting Provider Specialist; Visit Provider Specialist
PROC: (CPT 27130; principal; 2020-07-04 07:00)
DX: M16.11 Unilateral primary osteoarthritis, right hip (principal); E11.69 Type 2 diabetes mellitus with other specified complication; E66.01 Morbid (severe) obesity due to excess calories; Z68.39 Body mass index [BMI] 39.0-39.9, adult; E78.2 Mixed hyperlipidemia; Z79.4 Long term (current) use of insulin; G47.30 Sleep apnea, unspecified; I10 Essential (primary) hypertension
CPT/HCPCS: 27130; 12345; 36415; 36416; 51702; 72170; 80048; 80053; 81001; 82962; 85025; 87077; 87086; 87186; 87641; 88304; 93005; 96365; 96366; 96372; 97110; 97116; 97161; 97165; 97530; C1776; G0378; J0131; J1650; J1815 ×2; J2250; J2405; J2704; J2765; J3010; J3370; J3490; J7030; J7050

== ENCOUNTER → 2020-07-19 11:59 | Outpatient (BNVA) | payer MEDICAID, SELFPAY | PROVIDERS: Visit Provider Specialist | DX: Z96.641 Presence of right artificial hip joint (principal) | CPT/HCPCS: 73502 ==

== ENCOUNTER → 2020-08-23 07:59 | Outpatient (BNVA) | payer MEDICAID, SELFPAY | PROVIDERS: Visit Provider Specialist | DX: Z47.1 Aftercare following joint replacement surgery (principal); Z96.649 Presence of unspecified artificial hip joint | CPT/HCPCS: 73502 ==

== ENCOUNTER → 2020-09-05 15:06 | Outpatient (BNVA) | payer MEDICAID, SELFPAY | PROVIDERS: Visit Provider Orthopaedic Surgery | DX: M43.17 Spondylolisthesis, lumbosacral region (principal) | CPT/HCPCS: 72114 ==

== ENCOUNTER 2020-09-13 16:12 | Outpatient (CLI) | payer MEDICAID, SELFPAY | END 2020-09-13 16:13 | disposition home or self-care (01) | LOC: RAD 06-22 12:24 | PROVIDERS: Visit Provider Specialist | DX: M17.0 Bilateral primary osteoarthritis of knee (principal) | CPT/HCPCS: 73560; 73565 ==

== ENCOUNTER → 2020-12-27 15:34 | Outpatient (BNVA) | payer MEDICAID, SELFPAY | PROVIDERS: Visit Provider Specialist | DX: Z98.890 Other specified postprocedural states (principal); Z96.641 Presence of right artificial hip joint; M16.11 Unilateral primary osteoarthritis, right hip | CPT/HCPCS: 73502 ==

== ENCOUNTER 2021-02-05 13:29 | Outpatient (CLI) | payer MEDICAID, SELFPAY ==
--- NOTE | 2021-02-05 13:41 | MR_ITS ---
WS: [id number] MRI LUMBAR SPINE NONCONTRAST TECHNIQUE: Sagittal T1, T2 and STIR imaging. Axial T1 and T2 imaging. CLINICAL INFORMATION: R52 - Pain, unspecified COMPARISON: MRI 2016 FINDINGS: Mild lumbar curve. No acute compression. Slight anterolisthesis L4 on L5. Prior laminectomy defects L 3-4. L1-L2: Mild disc bulging. Slight impingement right subarticular recess and traversing right L2 nerve root. Mild facet arthropathy. Small right foraminal protrusion with mild right foraminal narrowing. L2-L3: Mild annular bulging. Slight effacement of the ventral thecal sac. Mild facet arthropathy. Spi nal canal and foramen are patent. L3-L4: Mild annular bulging with slight narrowing of the right subarticular recess. Moderate facet ar thropathy. Spinal canal and foramen are patent. Prior laminectomy defects. L4-L5: Grade 1 anterolisthesis L4 on L5. Mild central canal stenosis with mild annular bulging and mo derate facet arthropathy. Narrowing of the right greater than left subarticular recess. Foramen are p atent. L5-S1: Mild annular bulging. Slight contact of the traversing left S1 nerve root. Spinal canal and fo ramen are patent. Moderate facet arthropathy. Visualized pelvic bony structures: Normal. Paravertebral soft tissues: Normal. Central canal stenosis on the infusion nurse imaging cervical spine C3-C6. MR/MR lumbar spine wo con* [id number] IMPRESSION: 1. Mild lumbar curve. No acute compression. No high-grade central canal stenos is. 2. Mild central canal stenosis L4-5 with grade 1 anterolisthesis. This is abdiel lar to 2016. 3. Right subarticular and proximal foraminal protrusion L1-2 impinges the nevin ersing right L2 nerve root with contact of the exiting right L1 nerve root. Rec ommend correlation for L1 and L2 nerve root symptoms. This is progressed from 2 016. 4. Mild annular bulging L3-4 with moderate facet arthropathy and slight narrow ing of the right greater than left subarticular recess. Prior laminectomy defec ts at this level. 5. Left eccentric disc bulge L5-S1 slightly contacts the left S1 nerve root. 6. Mild to moderate facet arthropathy L3-L5. 7. Mild central canal stenosis in cervical spine on infusion nurse imaging. This can be further evaluated with cervical spine MRI.
== END 2021-02-05 13:30 | disposition home or self-care (01) ==
PROVIDERS: Visit Provider Orthopaedic Surgery
DX: M48.061 Spinal stenosis, lumbar region without neurogenic claudication (principal); M47.816 Spondylosis without myelopathy or radiculopathy, lumbar region; M51.27 Other intervertebral disc displacement, lumbosacral region
CPT/HCPCS: 72148

== ENCOUNTER → 2021-11-07 14:22 | Outpatient (BNVA) | payer MEDICAID, SELFPAY | PROVIDERS: Visit Provider Specialist | DX: Z96.641 Presence of right artificial hip joint (principal) | CPT/HCPCS: 73502 ==

== ENCOUNTER → 2021-12-04 14:09 | Outpatient (BNVA) | payer MEDICAID, SELFPAY | PROVIDERS: PCP Nurse Practitioner Family; Visit Provider Orthopaedic Surgery | DX: Z01.818 Encounter for other preprocedural examination (principal); Z20.822 Contact with and (suspected) exposure to COVID-19 | CPT/HCPCS: 87635 ==

== ENCOUNTER 2021-12-10 14:15 | Inpatient (IN) | payer MEDICAID, SELFPAY ==
[2021-12-06 13:17] VITALS: BMI 36.6
--- NOTE | 2021-12-06 13:39 | ECG_ITS ---
[facility] Test Date: 2021-12-06 Pat Name: Millie Leblanc Department: Room: Gender: Female Reliability Technicians: : 1965 Requested By: Raghav Anton Order Number: [id number] Debi MD: aKrime Cruz M.D. Measurements Intervals [place] Rate: 78 P: 62 VT: 198 QRS: -41 QRSD: 94 T: 94 QT: 354 QTc: 406 Interpretive Statements SINUS RHYTHM LEFT AXIS DEVIATION [QRS AXIS < -30] POSSIBLE ANTERIOR MYOCARDIAL INFARCTION , OF INDETERMINATE AGE [30 ms Q WAVE IN V3/V4, OR R < 0.2 mV IN V4] Compared to ECG 06/30/2020 09:05:13 Myocardial infarct finding now present T-wave abnormality no longer present Electronically Signed On 12-07-2021 6:06:02 VEHICLE MECHANIC by Karime Cruz M.D. [email or web address]
[2021-12-06 14:19] LABS: Blood Urea Nitrogen 10 mg/dL (6-20); Calcium 9.9 mg/dL (8.5-10.5); Carbon Dioxide 22 mmol/L (22-29); Chloride 100 mmol/L (98-107); Glomerular Filtration Rate 165.1 mL/min (90-130); Glucose 100 mg/dL (65-115); Osmolality Calculated 279 mOsm/kg (285-295); Sodium 135 mmol/L (136-145)
[2021-12-06 14:21] LABS: Anion Gap 17.4 (5-19); Potassium 4.4 mmol/L (3.5-5.1)
--- NOTE | 2021-12-06 14:41 | P.ANESASSM_ITS ---
Pre-Anesthetic Assessment Height/Weight: Height 1.65 m Weight 99.79 kg Preop Diagnosis: Severe DJD Right Hip Operation Date: 12/10/21 07:00 Proposed Procedures p Posterior Lumbar Interbody Fusion/l4/5/M43.16 spo,lum/M48.062 spinal stenosis(Not Applicable) - Mateo Hester DO Familial anesthetic complications: None Was Beta Gm taken within 24 hours: N/A Was Clonidine taken within 24 hours: N/A Social Tobacco and No alcohol Airway Submandibular: within normal limits Cervical ROM: within normal limits Mallampati: Class II Dentition: false Pulmonary Chronic Obstructive Pulmonary Disease and Sleep Apnea GI Gastroesophageal Reflux Disease Metabolic Diabetes Mellitus and Morbid Obesity [facility]/skel Lower Back Pain Anesthetic Plan ASA status: 3 Anesthesia: General Other: A.line Risk of > 500 ml blood loss (7ml/kg in children): Yes, adequate IV access and fluids planned Medications/Allergies Home Medications Medication Instructions Recorded Confirmed Last Taken Type diclofenac sodium 75 mg 75 mg PO BID 01/26/20 12/06/21 07/03/20 History tablet,delayed release doxepin 50 mg capsule 50 mg PO DAILY 01/26/20 12/06/21 07/03/20 History duloxetine 60 mg capsule,delayed 60 mg PO DAILY 01/26/20 12/06/21 07/03/20 History release sprinkle fluoxetine 20 mg capsule 20 mg PO DAILY 01/26/20 12/06/21 07/03/20 History fluticasone propionate 45 2 puff INHALATION BID 01/26/20 12/06/21 07/03/20 History mcg-salmeterol 21 mcg/actuation HFA inhaler (Advair HFA) pantoprazole 40 mg tablet,delayed 40 mg PO DAILY 01/26/20 12/06/21 07/03/20 History release pregabalin 200 mg capsule (Lyrica) 200 mg PO DAILY 01/26/20 12/06/21 07/03/20 History cyclobenzaprine 10 mg tablet 10 mg PO TID 05/26/20 12/06/21 07/03/20 History oxycodone 20 mg tablet 20 mg PO QID PRN 05/26/20 12/06/21 07/03/20 History metformin 1,000 mg tablet 1,000 mg PO BID tab 06/12/20 12/06/21 07/03/20 08:00 History diazepam 5 mg tablet (Valium) 5 mg PO BID PRN 1 Days #1 tab 01/29/21 12/06/21 Unknown Rx dulaglutide 3 mg/0.5 mL 3 mg SUBCUT DIRECTED 04/26/21 12/06/21 Unknown History subcutaneous pen injector (Trulicity) Allergies Allergy/AdvReac Type Severity Reaction Status Date / Time ibuprofen Allergy Intermediate ALGY-Hives Verified 11/20/21 13:16 naproxen [From Aleve] Allergy Intermediate ALGY-Rash Verified 11/20/21 13:16 Penicillins Allergy Intermediate ALGY-Hives Verified 11/20/21 13:16 lisinopril AdvReac ALGY-Swell Verified 11/20/21 13:18 Lip/Tongue/Throat [facility] Anesthesia Medical History Cervical spinal stenosis With cervical radicular pain and cervical spondylosis COPD (chronic obstructive pulmonary disease) GERD (gastroesophageal reflux disease) Greater trochanteric bursitis of both hips Hyperlipidemia Hypertension Lumbar spinal stenosis Osteoarthritis of right hip Type 2 diabetes mellitus Insulin-dependent Surgical History History of carpal tunnel release History of hysterectomy Status post hemilaminotomy Family History Other Unknown family medical history Social History Smoking and tobacco status: current every day smoker cigarettes Packs smoked per day: 0.25 Alcohol intake: never Data Anesthesia : 12/06/21 13:40 BMP 12/06/21 13:40 Sodium 135 L Potassium 4.4 Chloride 100 Carbon Dioxide 22 BUN 10 Creatinine 0.4 L Glucose 100 Calcium 9.9 Cardiac Studies: No Data to Display
[2021-12-10] VITALS (16 sets, daily range): BP systolic 74–133; BP diastolic 55–87; PULSE 80–96; RESP 14–20; TEMP 35.8–36.9; O2SAT 90–99; BMI 36.6
--- NOTE | 2021-12-10 | SCC_ITS ---
Procedure: 1. L4/5 Interbody fusion with posterolateral fusion 2. Instrumentation L4/5 3. Cage at L4/5 4. Laminectomy L4 for decompression of nerve 5. use of autograft from same incision 6. allograft 7. Bone marrow aspirate from right iliac crest 8. use of computer navigation/ stereotactic for spine 13 seconds of fluoroscopic guidance, for a cumulative dose of 50.5 mGy, was provided to Dr. Hester by the radiology department. C-arm images of the lumbar spine were saved for the patient's permanent record. MERT
[2021-12-10 08:46] LABS: Glucose Point of Care 143 mg/dL (70-110)
--- NOTE | 2021-12-10 10:02 | W.PM.OPSUD ---
Surgery/Procedure H&P Update DATE OF PROCEDURE: December 10, 2021 DATE H&P PERFORMED: 11/20/21 PREOP DIAGNOSIS: Spondylolisthesis L4-5 with lumbar radiculopathy PLANNED PROCEDURE: Operation Date: 12/10/21 10:20 Proposed Procedures p Posterior Lumbar Interbody Fusion/l4/5/M43.16 spo,lum/M48.062 spinal stenosis(Not Applicable) - Mateo Hester, DO
[2021-12-10] MEDS: clindamycin 900 MG/50 ML PREMIX 100 MG IV ×2 (11:00→17:53)
[2021-12-10] MEDS: heparin, porcine 1,000 unit/mL INJ 10 mL 10000 UNIT INJECTION (12:13)
[2021-12-10] MEDS: vancomycin 1,000 MG SDV 1000 MG XX (12:14)
--- NOTE | 2021-12-10 13:57 | XR_ITS ---
WS: [id number] Lumbar spine, C-arm fluoroscopy in the OR, 12/10/2021 Clinical Data: OR PICS LUMBAR FUSION Comparison: None. Findings: Dr. Hester performed a posterior lumbar fusion. XR/XR lumbar spine 1V [id number] Impression: Posterior lumbar fusion.
--- NOTE | 2021-12-10 14:03 | P.OP_ITS ---
Operative Report Date of procedure: December 10, 2021 Pre-op diagnosis: Preop Diagnosis Spondylolisthesis L4-5 with lumbar radiculopathy Post-op diagnosis: same Post-op findings: 1. L4/5 Interbody fusion with posterolateral fusion 2. Instrumentation L4/5 3. Cage at L4/5 4. Laminectomy L4 for decompression of nerve 5. use of autograft from same incision 6. allograft 7. Bone marrow aspirate from right iliac crest 8. use of computer navigation/ stereotactic for spine Surgeon: Mateo Hester Hot Strip Mill Inspector: Elmo Lucero Hot Strip Mill Inspector: The surgical supervisor, Elmo Lucero, PAC was needed for his expertise under the microscope. He was important and necessary throughout the procedure to complete in a safe and timely manner. He assisted with patient positioning prepping and draping tissue retraction suctioning of the operative field protection of the dural sac and tissue closure Estimated blood loss (mL): 500 Procedure: 1. L4/5 Interbody fusion with posterolateral fusion 2. Instrumentation L4/5 3. Cage at L4/5 4. Laminectomy L4 for decompression of nerve 5. use of autograft from same incision 6. allograft 7. Bone marrow aspirate from right iliac crest 8. use of computer navigation/ stereotactic for spine Patient is brought to the operative suite. After undergoing anesthesia, the patient had neuro monitoring attached. Patient was then placed in the prone po sition on the Goyo table. All areas of impingement were well-padded. Patient was then prepped and draped in the normal sterile fashion. Skin incision was then made over the L4/5 space. Subperiosteal dissection was made out to the transverse processes of L4 and L5. Once the exposure was complete attention was then brought to bone marrow aspirate. The [employer] bone marrow aspirate kit was used to aspirate bone marrow aspirate from right iliac crest. this was done by using the sharp probe to open up the bone. Aspiration was performed and then the blunt probe was then used to dissect down to through the bone tunnel. An aspirating well drawn back a millimeter approximately 20 cc of bone marrow aspirate was used. Admixed with the allograft and autograft bone that will be used. Next attention was brought to placing the fiducial for the computer navigation. A stab incision was made into the right side of the iliac crest. And then 2 pins were placed. The fiducial was attached to the 2 pins. And then the C-arm was brought in and spun around the patient. Information from the C-arm was then loaded into the fiducial. Tension was brought to placing the pedicle screws. The technique for placing the pedicle screws was to use a drill followed by the gearshift probe linked to the computer navigation Followed by the ball probe to feel the superior inferior medial lateral henriquez of the pedicles. Then placement of the screws linked to computer navigation. Was done at each pedicle. Screws were placed at L4 bilaterally and L5. Next attention was brought to performing the laminectomy ofL4. This was done using the high-speed bur Kerrisons and curettes. Once the lamina was removed and then attention was brought to performing a partial facetectomy on the contralateral side. This was done again using the high-speed bur curettes and Kerrisons. The ligamentum flavum was taken down bilaterally from L4 to L5. Attention was then brought to the facet on the ipsilateral side. The facet was taken down. The L5 nerve was decompressed as it passed around the L5 pedicle. The laminectomy was done for purposes of decompressing the nerve as well as placement of the cage. The L4 nerve was identified as it traversed through the L4/5 foramen. The thecal sac was identified and retracted. The L4/5 disc base was identified. Using a knife the disc base was opened. And then sequential shanta were placed. The first shaver was a 6 and the last shaver was a 12. Using a pituitary and down going curette the endplates were scraped and disc material was removed from the space. Once adequate decompression of the disc base was felt to be had. Osteoamp sponge was packed into the anterior aspect of the disc base. Then a size 12 cage from [employer] was placed after packing osteoamp into the cage. While placing the cage the thecal sac and L5 nerve was protected. C arm was used to ensure that the cages placed in the appropriate position. Attention was then brought to attaching the rods to the screws placed in the L4 and L5 bilaterally. Caps were torqued into position. Locking the construct in place. Wound was copiously irrigated and then attention was brought to decorticating the facets and transverse processes laterally. Bone that was taken down from the lamina was used along with osteoamp fibers and sponges were packed into the lateral gutters along the facet joints. This was done bilaterally. Wound was then closed in a layered fashion starting with the thoracolumbar fascia. 0-vicryl was used the sub cutaneous tissue was closed with 2-0 vicryl and skin with 4-0 monocryl. Glue was then used to seal the skin and a steril dressing was applied. Patient was then placed in the supine position. The endotracheal tube was removed and patient was transferred to the PACU in stable condition.
[2021-12-10] MEDS: ketorolac 30 mg/mL INJ IVP (15:31)
[2021-12-10] MEDS: cyclobenzaprine 10 mg Tablet PO ×2 (15:32→21:16)
[2021-12-10] MEDS: lactated ringers 1,000 ML 90 ML IV (15:40)
--- NOTE | 2021-12-10 15:49 | PC.NURSE ---
1510 Pt arrived from surgery per staff. AAOX4. C/O pain 8/10 in lower back. Orders processed. Pt assisted up to chair in room. Hemovac drain in place to R flank. ABD binder in place. Unable to visualize surgical site. 150ml dark, red blood drained from hemovac and then drain recompressed. Pt able to make all needs known. Home meds given to charge nurse to place in pyxis until dc. Riddle cath draining freely. Will monitor. 1540 Pain meds given per orders. Pt still c/o pain to lower back 8/10. Will continue to monitor for effectiveness.
[2021-12-10] MEDS: HYDROcodone-acetaminophen 5-325 mg Tablet PO ×2 (16:54→21:16)
[2021-12-10] MEDS: metformin 500 mg Tablet 1000 MG PO (16:54)
[2021-12-10] MEDS: docusate sodium 100 mg Capsule PO (16:55)
[2021-12-10] MEDS: diclofenac 75 mg DR Tablet PO (17:11)
--- NOTE | 2021-12-10 18:01 | PC.NURSE ---
Pt drowsy and speech impaired after administration of PO pain meds. 125ml dark red blood obtained from hemovac. Pt resting in bed. VSS. Will monitor.
[2021-12-10] MEDS: albuterol 8 gm MDI 2 PUFF INHALATION (19:32)
[2021-12-10] MEDS: diazePAM 5 mg Tablet PO (21:16)
[2021-12-11] MEDS: HYDROcodone-acetaminophen 5-325 mg Tablet PO (01:18)
[2021-12-11] MEDS: clindamycin 900 MG/50 ML PREMIX 100 MG IV (02:09)
[2021-12-11] MEDS: lactated ringers 1,000 ML 90 ML IV (02:10)
[2021-12-11 04:00] VITALS: BP 91/53; PULSE 79; RESP 17; TEMP 36.3; O2SAT 94
[2021-12-11] MEDS: ketorolac 30 mg/mL INJ IVP (04:29)
[2021-12-11] MEDS: enoxaparin 40 mg/0.4 mL Syringe SUBCUT (05:59)
[2021-12-11 08:00] VITALS: BP 104/67; PULSE 83; RESP 18; TEMP 36.7; O2SAT 92
--- NOTE | 2021-12-11 08:02 | P.PN_ITS ---
Subjective Subjective: POD 1 Patient resting comfortably. States her leg pain is much improved. Mild back pain. Denies any headaches, chest pain, shortness of breath. Vitals/I&O/Wt Last Vital Signs Temp 97.4 F L 12/11/21 04:00 Pulse 79 12/11/21 04:00 Resp 17 12/11/21 04:00 BP 91/53 12/11/21 04:00 Pulse Ox 94 12/11/21 04:00 12/10/21 12/11/21 12/11/21 22:59 06:59 14:59 Intake Total 650 / 900 995 / 1895 Output Total 275 / 775 2150 / 2925 Balance 375 / 125 -1155 / -1030 Weight last 48 hrs Weight 220 lb Physical Exam Narrative: Patient presents alert and oriented x3 with a good general appearance normal mood and affect. Normal coordination normal stability. Mild tenderness around the incisional site with the incision appear to be healing nicely. No signs of erythema or drainage. No signs of infection. Patient denies any fevers or chills. 5/5 motor strength both lower extremities with negative straight leg raise bilaterally. Calves are supple no medial thigh tenderness. Pulses are 2+ at the dorsalis pedis and posterior tibial region. Good capillary refill throughout normal sensation light touch both lower extremities. Urinary Catheter Management: Riddle Latex: Cath Placed During This Visit: yes Reason for Continuing Indwelling Catheter: Required Immobilization for Trauma or Surgery or Anesthesia Urinary Catheter Date of Insertion: 12/10/21 Urinary Catheter Time of Insertion: 11:15 Data : 12/06/21 13:40 A&P Assessment and plan (1) S/P spinal fusion: Status: Acute Plan We will discontinue the Riddle catheter, Hemovac drain. Encourage physical therapy to mobilize. Encourage incentive spirometry for pulmonary toilet. Discharge home later today. She will follow up in 1 week's time for a wound check. She will call if she is having problems. Attestations Medical Necessity Statement*: home later this AM Coding Level of Care Code Acute Transportation Operations Manager for Chg Fwd Diagnoses S/P spinal fusion Z98.1
[2021-12-11] MEDS: diazePAM 5 mg Tablet PO (08:14)
[2021-12-11] MEDS: diclofenac 75 mg DR Tablet PO (08:14)
[2021-12-11 08:15] VITALS: RESP 16
[2021-12-11] MEDS: pregabalin 100 mg Capsule 200 MG PO (08:15)
[2021-12-11] MEDS: metformin 500 mg Tablet 1000 MG PO (08:15)
[2021-12-11] MEDS: fluoxetine 20 mg Capsule PO (08:15)
[2021-12-11] MEDS: docusate sodium 100 mg Capsule PO (08:15)
[2021-12-11] MEDS: oxyCODONE 5 mg IR Tab/Cap 20 MG PO (08:15)
[2021-12-11] MEDS: duloxetine 60 mg Capsule PO (08:15)
[2021-12-11] MEDS: cyclobenzaprine 10 mg Tablet PO (08:15)
[2021-12-11] MEDS: pantoprazole DR 40 mg Tablet PO (08:15)
[2021-12-11] MEDS: doxepin 50 mg Capsule PO (08:38)
[2021-12-11] MEDS: albuterol 8 gm MDI 2 PUFF INHALATION (08:54)
[2021-12-11 08:56] VITALS: PULSE 79; RESP 16; O2SAT 92
--- NOTE | 2021-12-11 09:32 | PC.NURSE ---
Removed pacheco and instructed patient to report when she urinates. Removed hemovac drain from right lower back. Patient tolerated procedure.
--- NOTE | 2021-12-11 10:24 | PC.NURSE ---
Discharge Note Patient discharged to home via private vehicle accompanied by daughter. Discharge instructions reviewed with patient and/or cash applications representative. Mobile pharmacy medications and/or prescriptions provided. Belongings/home medications returned. Instructed not to Bend, twist, or lift anything. Instructed patient not to tub bathe or soak in hot tubs. Leave dressing in place until follow up with Dr. Hester's office. IV removed.
[2021-12-11 10:52] VITALS: PULSE 79; RESP 16; O2SAT 92
--- NOTE | 2021-12-12 17:35 | P.DS_ITS ---
Discharge Providers Date of Admission: 12/10/21 14:15 Date of Discharge: December 11, 2021 Attending Provider at Admission: Mateo Hester DO Attending Provider at Discharge: Mateo Hester DO Primary Care Provider: Krystyna Schneider Diagnoses at Discharge Discharge Diagnosis (1) S/P spinal fusion: Status: Acute Reason for Visit Reason for Visit: m43.16 spondylolisthesis,M48.062 spinal stenosis Hospital Course Hospital Course uneventful Physical Exam Urinary Catheter Management: Riddle Latex: Cath Placed During This Visit: yes, but has since been removed by the nurse Reason for Continuing Indwelling Catheter: Decision to DC Catheter Urinary Catheter Date of Insertion: 12/10/21 Urinary Catheter Time of Insertion: 11:15 Date Urinary Catheter Removed: 12/11/21 Time Urinary Catheter Discontinued: 09:01 Discharge Data Studies Completed and Pending Completed Studies During Hospitalization Category Date Time Status XR lumbar spine 1V [id number] Routine Exams 12/10/21 13:57 Completed Radiology Impressions Lumbar Spine X-Ray 12/10/21 13:57 Impression: Posterior lumbar fusion. Laboratory Results Sodium 135 mmol/L (136-145) L 12/06/21 13:40 Potassium 4.4 mmol/L (3.5-5.1) 12/06/21 13:40 Chloride 100 mmol/L (98-107) 12/06/21 13:40 Carbon Dioxide 22 mmol/L (22-29) 12/06/21 13:40 Anion Gap 17.4 (5-19) 12/06/21 13:40 BUN 10 mg/dL (6-20) 12/06/21 13:40 Creatinine 0.4 mg/dL (0.5-0.9) L 12/06/21 13:40 GFR Calculation 165.1 mL/min (90-130) H 12/06/21 13:40 Glucose 100 mg/dL (65-115) 12/06/21 13:40 POC Glucose 143 mg/dL (70-110) H 12/10/21 08:43 Calculated Osmolality 279 mOsm/kg (285-295) L 12/06/21 13:40 Calcium 9.9 mg/dL (8.5-10.5) 12/06/21 13:40 Vitals Last Vital Signs Temp 98.0 F 12/11/21 08:00 Pulse 79 12/11/21 10:52 Resp 16 12/11/21 10:52 BP 104/67 12/11/21 08:00 Pulse Ox 92 12/11/21 10:52 Discharge Plan Discharge Patient Disposition: Home Condition: Stable Prescriptions: New hydrocodone-acetaminophen 5-325 mg tablet 1 tab PO Q4H Qty: 40 0RF Continued Advair HFA 45-21 mcg/actuation HFA aerosol inhaler 2 puff INHALATION BID 0RF diclofenac sodium 75 mg tablet,delayed release (DR/EC) 75 mg PO BID 0RF doxepin 50 mg capsule 50 mg PO DAILY 0RF duloxetine 60 mg capsule, delayed rel sprinkle 60 mg PO DAILY 0RF fluoxetine 20 mg capsule 20 mg PO DAILY 0RF pregabalin [Lyrica] 200 mg capsule 200 mg PO DAILY 0RF pantoprazole 40 mg tablet,delayed release (DR/EC) 40 mg PO DAILY 0RF metformin 1,000 mg tablet 1,000 mg PO BID 0RF Trulicity 3 mg/0.5 mL pen injector 3 mg SUBCUT DIRECTED 0RF diazepam [Valium] 5 mg tablet 5 mg PO BID PRN (Reason: anxiety) 1 Days Qty: 1 0RF cyclobenzaprine 10 mg tablet 10 mg PO TID 0RF oxycodone 20 mg tablet 20 mg PO QID PRN (Reason: Pain) 0RF Discharge Orders: Discharge Order (Routine); Ordered 12/11/21 Ordered By: Elmo Lucero Referrals: Mateo Hester DO [Physician] - 12/25/21 10:15 am Discharge Diet: Advance as tolerated Discharge Activity: Increase activity as tolerated Patient Instructions: Hydrocodone/Acetaminophen (By mouth), Anterior Posterior Spinal Fusion (DC), Wound Healing and Your Diet (DC), Opioid Safety Activity Restrictions/Additional Instructions: Thank you for choosing [facility] for your care! The following is a list of instructions, from your provider, to follow upon your discharge to ensure you have the optimal recovery from your recent injury or surgery. Follow-up care is a garcia part of your treatment and safety. Be sure to make and go to all appointments and call your doctor if you are having problems. If you do not already have a follow-up appointment made, call Dr. Hester's] office in the next 1-3 days to make follow up appointment for 1 weeks at [phone]. It is also a good idea to know your test results and keep a list of the medicines you take. Medications will be prescribed for you at your provider's discretion. These medications are to be used as instructed; if they are taken more often that prescribed they will not be refilled early and in most cases will not be refilled at all. > When a refill is needed, you should contact arnold luna 2-3 business days before your prescription runs out. Medications will NOT be refilled by corrections officer providers after hours! > Many pain medications contain Tylenol (Acetaminophen). Do not consume more than 4,000 mg of Tylenol per day in total with any combination of medications. > Pain medications can cause constipation. Please use an over the counter stool softener as directed, while taking pain medications. Consult your local pharmacist with questions or recommendations on stool softeners. If constipation persists, contact our office or your primary care provider. > While under our care, you are not to receive pain medications or other controlled substances from any other provider unless our office is notified and approves. Any attempts to do so will result in refusal to prescribe any further pain medications and possible dismissal from our practice. ? Walking is essential for the healing process after surgery. We would like you to slowly advance your walking. This should be done on relatively flat clear ground (inside or out) or can be done on a treadmill. Remember this goal does not have to happen all at once, slowly increase your distance and duration. This can be broken into more more than one walk per day as tolerated. Patients who walk as directed after surgery rarely require Physical Therapy. In the unlikely event this issue arises your provider will direct hospital staff to make the appropriate arrangements. ? No lifting over 5 pounds {a gallon of milk) or bending/twisting until further notice. Each of these activities places an unnecessary amount of stress onto the body and can impede the delicate healing process. > Instead of bending at the waist, keep your back straight and bend at the knees. > Instead of twisting your torso, keep your back straight and turn your entire body with your feet. ? You may sleep in any position which makes you comfortable. Many patients find comfort sleeping in a reclining chair. It is not abnormal to have difficulty sleeping for the first several weeks following your surgery. We recommend trying Benadry! or Tylenol PM as directed to help with your sleeping difficulties. Both medications are over the counter and available without prescription. ? NO SMOKING!!! Smoking dramatically increases the probability of developing postoperative wound infections. ? Common complaints after lumbar and/or thoracic spine surgery include, but are not limited to: numbness and/or tingling in the legs, pain around the incision and surrounding tissues, muscle spasms, or stiffness of the middle to low back. Contact our office if these symptoms persist or if an acute change occurs. ? No driving for the first 3-5days, and not while taking narcotics until seen at your follow-up appointment and cleared. There are no restrictions for riding on short trips, however if you take a longer trip, arrangements s hould be made to make regular stops to get out of the vehicle and stretch . ? Swelling is an unfortunate event that will take place with any surgery and is the primary source of your postoperative discomfort. While walking and regular approved activities helps control inflammation, there are additional steps you can take to minimize swelling. > Place ice over the surgical site and surrounding tissue for twenty minutes, followed by applying a low/medium heat (heating pad) for an additional twenty minutes every 1-2 hours as needed for painrelief. > You may use of over the counter anti-inflammatory medications (Ibuprofen, Motrin, Aleve, Advil, etc) as directed on the package label. These types of medicines will significantly reduce the amount of discomfort you experience after surgery from swelling. It should be noted that if you have and allergy to any of these medications, or a history of ulcers or kidney disease you should consult you primary care provider prior to starting these medications. Discharge Attestations Time Spent in Discharge Care*: less than 30 min Quality Metrics Clinical Quality Measures [ No reported AMI, CVA or VTE this stay] Coding Level of Care Code Acute Chg FW DC note Diagnoses S/P spinal fusion Z98.1
== END 2021-12-11 10:53 | disposition home or self-care (01) | DRG 460 ==
LOC: MEDSURG 22:38
PROVIDERS: Anesthesiology; Admitting Provider Orthopaedic Surgery; PCP Nurse Practitioner Family; Visit Provider Orthopaedic Surgery
PROC: 0SG00AJ Fusion of Lumbar Vertebral Joint with Interbody Fusion Device, Posterior Approach, Anterior Column, Open Approach (ICD-10-PCS; CPT 22612; principal; 2021-12-10 10:20)
DX: M43.16 Spondylolisthesis, lumbar region (principal); Z98.1 Arthrodesis status; Z79.891 Long term (current) use of opiate analgesic; Z79.4 Long term (current) use of insulin; Z79.84 Long term (current) use of oral hypoglycemic drugs; J44.9 Chronic obstructive pulmonary disease, unspecified; M47.812 Spondylosis without myelopathy or radiculopathy, cervical region; K21.9 Gastro-esophageal reflux disease without esophagitis; E78.5 Hyperlipidemia, unspecified; I10 Essential (primary) hypertension; M16.11 Unilateral primary osteoarthritis, right hip; E11.9 Type 2 diabetes mellitus without complications; F17.210 Nicotine dependence, cigarettes, uncomplicated
CPT/HCPCS: 36416; 51702; 72020; 76000; 80048; 82962; 93005; 94640; 96372; 97161; 97165; 97530; C1713; J1100; J1170; J1644; J1650; J1885; J2370; J2405; J2704; J3010; J3370; J3490; J3535; P9041

== ENCOUNTER → 2022-01-22 13:00 | Outpatient (BNVA) | payer MEDICAID, SELFPAY | PROVIDERS: PCP Nurse Practitioner Family; Visit Provider Orthopaedic Surgery | DX: Z47.89 Encounter for other orthopedic aftercare (principal); Z98.890 Other specified postprocedural states; Z98.1 Arthrodesis status | CPT/HCPCS: 72100; 99213 ==

== ENCOUNTER → 2022-03-05 13:26 | Outpatient (BNVA) | payer MEDICAID, SELFPAY | PROVIDERS: PCP Nurse Practitioner Family; Visit Provider Orthopaedic Surgery | DX: M54.50 Low back pain, unspecified (principal); W19.XXXA Unspecified fall, initial encounter; Z98.1 Arthrodesis status; Z47.89 Encounter for other orthopedic aftercare | CPT/HCPCS: 72100; 99213; 99214 ==

== ENCOUNTER → 2022-04-18 13:07 | Outpatient (BNVA) | payer MEDICAID, SELFPAY | PROVIDERS: PCP Nurse Practitioner Family; Visit Provider Orthopaedic Surgery | DX: Z47.89 Encounter for other orthopedic aftercare (principal); Z98.890 Other specified postprocedural states; Z98.1 Arthrodesis status | CPT/HCPCS: 72100; 99213; 99214 ==

== ENCOUNTER 2022-07-09 16:00 | Outpatient (CLI) | payer MEDICAID, SELFPAY ==
--- NOTE | 2022-07-09 16:00 | MR_ITS ---
WS: [id number] MRI LUMBAR SPINE NONCONTRAST TECHNIQUE: Sagittal T1, T2 and STIR imaging. Axial T1 and T2 imaging. CLINICAL INFORMATION: pain COMPARISON: MRI February 05, 2021 FINDINGS: Mild lumbar curve. No acute compression. Postoperative changes are new compared to previous with pedi aroldo screw fixation L4-L5 interbody fusion. Associated laminectomy defects. Slight anterolisthesis L4 on L5. Disc bulging worse at L1-L2, L2-L3, L3-L4. L1-L2: Mild disc bulging with narrowing of the subarticular recess. Mild facet arthropathy. RIGHT for aminal protrusion with moderate RIGHT foraminal narrowing. L2-L3: Mild annular bulging. Mild central canal stenosis. Moderate facet arthropathy. Spinal canal an d foramen are patent. L3-L4: Mild disc bulging with slight effacement of ventral thecal sac. Foramen are patent. Mild centr al canal stenosis. L4-L5: Pedicle screw fixation with laminectomy defects. Spinal canal is patent. Slight anterolisthesi s. Foramen are patent. Moderate facet arthropathy. L5-S1: Trace anterolisthesis. Spinal canal and foramen are patent. Mild facet arthropathy. Mild central canal stenosis cervical spine on passenger screener imaging. MR/MR lumbar spine wo con* [id number] IMPRESSION: 1. Postoperative changes L4-L5 pedicle screw fixation with interbody fusion ne w from previous. Associated laminectomy defects. 2. Mild central canal stenosis L1-L2, L2-L3, and L3-L4. Central canal stenosis at L1-L2 and L2-L3 appears progressed compared to previous. 3. RIGHT foraminal protrusion L1-L2 with moderate RIGHT foraminal narrowing an d impingement on the exiting RIGHT L1 nerve root progressed compared to previou s. 4. Spinal canal is decompressed at the fusion levels.
== END 2022-07-09 16:01 | disposition home or self-care (01) ==
LOC: RAD 16:01
PROVIDERS: PCP Nurse Practitioner Family; Visit Provider Orthopaedic Surgery
DX: M43.16 Spondylolisthesis, lumbar region (principal); Z98.1 Arthrodesis status; M48.061 Spinal stenosis, lumbar region without neurogenic claudication; M51.26 Other intervertebral disc displacement, lumbar region
CPT/HCPCS: 72148

== ENCOUNTER → 2022-07-16 14:59 | Outpatient (BNVA) | payer MEDICAID, SELFPAY | PROVIDERS: PCP Nurse Practitioner Family; Visit Provider Orthopaedic Surgery | DX: M54.2 Cervicalgia (principal); M48.061 Spinal stenosis, lumbar region without neurogenic claudication; Z98.1 Arthrodesis status | CPT/HCPCS: 72050; 99214 ==

== ENCOUNTER 2022-09-12 11:35 | Outpatient (CLI) | payer MEDICAID, SELFPAY ==
--- NOTE | 2022-09-12 11:45 | MR_ITS ---
WS: [id number] MRI CERVICAL SPINE 09/13/2017 HISTORY: Neck pain with headaches and numbness. COMPARISON: 09/13/2017 Technique: Multiplanar, multisequence noncontrast imaging of the cervical spine. Normal posterior alignment. Marrow edema in the adjacent endplates of C6 and C7. No fractures. Disc spaces are narrowed. There is a small amount of increased T2 signal along the LEFT lateral cervi kimbelree cord at the C7 level. This does appear to be external to the cord. May be a small amount of CSF o r edema. Craniocervical junction, C1 and C2 relationship, odontoid process and soft tissues are normal. C2-C3: Mild disc bulging and osteophytes. Mild LEFT foraminal stenosis. C3-C4: Mild bilateral facet joint arthritis. Mild central and bilateral foraminal stenosis. C4-C5: Effacement of CSF. Mild disc bulging with facet joint arthritis and osteophytes. Moderate cent ral with mild bilateral foraminal stenosis. C5-C6: Mild disc bulging with facet disease. Small osteophytes. Mild central and foraminal stenosis. C6-C7: Diffuse osteophytic ridging with a central disc protrusion. Moderate facet joint arthritis. Se marquise central and bilateral foraminal stenosis. Slightly greater stenosis LEFT foramen. C7-T1: Mild facet and ligamentum flavum arthritis. T1-2: Small LEFT paracentral disc protrusion. Paravertebral soft tissues are negative. Prior ischemic changes in the LEFT lito. No change. MR/MR cervical spin wo con* [id number] IMPRESSION: 1. Multilevel areas of stenosis and degenerative facet joint arthritis. Only m ild progression since the prior study. 2. Severe central and bilateral foraminal stenosis at C6-7 due to disc, osteop hyte and facet disease. 3. Mild central and foraminal stenosis at C3-4 and C5-6. 4. Moderate central and mild foraminal stenosis at C4-5.
== END 2022-09-12 11:36 | disposition home or self-care (01) ==
LOC: RAD 11:35
PROVIDERS: PCP Nurse Practitioner Family; Visit Provider Orthopaedic Surgery
DX: R59.1 Generalized enlarged lymph nodes (principal); M48.02 Spinal stenosis, cervical region; M25.78 Osteophyte, vertebrae; M47.812 Spondylosis without myelopathy or radiculopathy, cervical region
CPT/HCPCS: 72141

== ENCOUNTER → 2022-11-14 15:05 | Outpatient (BNVA) | payer MEDICAID, SELFPAY | PROVIDERS: PCP Nurse Practitioner Family; Visit Provider Orthopaedic Surgery | DX: M47.12 Other spondylosis with myelopathy, cervical region (principal) | CPT/HCPCS: 99214 ==

== ENCOUNTER → 2022-11-20 15:14 | Outpatient (BNVA) | payer MEDICAID, SELFPAY | PROVIDERS: PCP Nurse Practitioner Family; Visit Provider Specialist | DX: Z96.649 Presence of unspecified artificial hip joint (principal) | CPT/HCPCS: 73502; 99213 ==

== ENCOUNTER 2022-11-22 05:47 | Day surgery (SDC) | payer MEDICAID, SELFPAY ==
[2022-11-20 13:23] VITALS: BMI 36.6
[2022-11-20 14:09] LABS: Anion Gap 12.8 (5-19); Blood Urea Nitrogen 14 mg/dL (6-20); Carbon Dioxide 26 mmol/L (22-29); Chloride 98 mmol/L (98-107); Glucose 185 mg/dL (65-115); Osmolality Calculated 281 mOsm/kg (285-295); Potassium 3.8 mmol/L (3.5-5.1); Sodium 133 mmol/L (136-145)
[2022-11-22] VITALS (13 sets, daily range): BP systolic 100–149; BP diastolic 63–92; PULSE 66–73; RESP 15–21; TEMP 36.2–36.6; O2SAT 92–99
--- NOTE | 2022-11-22 | XR_ITS ---
WS: [id number] C-arm fluoroscopy of the cervical spine, 11/22/2022 Clinical Data: WHIT PICS Comparison: Cervical spine, 07/16/2022 Findings: Dr. Kacie vasquez performed an anterior cervical disc fusion of the lower cervical spine. XR/XR cervical spine 1V [id number] Impression: Anterior cervical disc fusion.
[2022-11-22 06:19] LABS: Glucose Point of Care 171 mg/dL (70-110)
[2022-11-22] MEDS: sodium chloride 0.9% 1,000 ML 30 ML IV (06:21)
--- NOTE | 2022-11-22 06:35 | W.PM.OPSUD ---
Surgery/Procedure H&P Update DATE OF PROCEDURE: November 22, 2022 DATE H&P PERFORMED: 11/14/22 H&P UPDATE INFORMATION: I have reviewed H&P completed within last 30 days, I have examined patient prior to procedure and No changes to prior documentation PREOP DIAGNOSIS: Cervical spondylosis with myelopathy PLANNED PROCEDURE: Operation Date: 11/22/22 07:00 Proposed Procedures p ACDF C6/7 w/ Arthrodesis w/ Instrumentation w/ Allograft w/ Navigation w/ Cage [id number](Not Applicable) - Mateo Hester DO
--- NOTE | 2022-11-22 06:42 | ANES.PREANE2 ---
Pre-Anesthetic Assessment Height/Weight: Height 1.65 m Weight 99.79 kg Temp Pulse Resp BP Pulse Ox O2 Del Method 97.2 F L 73 18 149/87 95 11/22/22 06:11 11/22/22 06:11 11/22/22 06:11 11/22/22 06:11 11/22/22 06:11 11/22/22 06:14 Preop Diagnosis: Cervical spondylosis with myelopathy Operation Date: 11/22/22 07:00 Proposed Procedures p ACDF C6/7 w/ Arthrodesis w/ Instrumentation w/ Allograft w/ Navigation w/ Cage [id number](Not Applicable) - Mateo Hester, Familial anesthetic complications: None Was Beta Gm taken within 24 hours: N/A Was Clonidine taken within 24 hours: N/A Last intake: Intake Last Liquid Date 11/21/22 Last Liquid Time 05:00 Last Solid Date 11/21/22 Last Solid Time 18:30 Social Tobacco and No alcohol Exam alert, oriented x 3, clear to auscultation bilaterally and regular rate & rhythm Airway Mallampati: Class II Dentition: false Comments: Comments: large neck circumference Pulmonary Chronic Obstructive Pulmonary Disease and Sleep Apnea Metabolic Diabetes Mellitus, Morbid Obesity and Thyroid Disease Musc/skel Lower Back Pain Anesthetic Plan ASA status: 3 Anesthesia: General Risk of > 500 ml blood loss (7ml/kg in children): No Medications/Allergies Home Medications Medication Instructions Recorded Confirmed Last Taken Type diclofenac sodium 75 mg 75 mg PO BID 01/26/20 11/20/22 11/21/22 History tablet,delayed release doxepin 50 mg capsule 50 mg PO DAILY 01/26/20 11/20/22 11/21/22 History duloxetine 60 mg capsule,delayed 60 mg PO DAILY 01/26/20 11/20/22 11/21/22 History release sprinkle fluoxetine 20 mg capsule 20 mg PO DAILY 01/26/20 11/20/22 11/21/22 History fluticasone propionate 45 2 puff inhalation BID 01/26/20 11/20/22 11/21/22 History mcg-salmeterol 21 mcg/actuation HFA inhaler (Advair HFA) pantoprazole 40 mg tablet,delayed 40 mg PO DAILY 01/26/20 11/20/22 11/21/22 History release pregabalin 200 mg capsule (Lyrica) 200 mg PO DAILY 01/26/20 11/20/22 11/21/22 History cyclobenzaprine 10 mg tablet 10 mg PO TID 05/26/20 11/22/22 07/03/20 History oxycodone 20 mg tablet 20 mg PO QID PRN Pain 05/26/20 11/22/22 11/21/22 History metformin 1,000 mg tablet 1,000 mg PO BID 06/12/20 11/20/22 11/21/22 History diazepam 5 mg tablet (Valium) 5 mg PO BID PRN anxiety 1 day #1 01/29/21 11/22/22 12/10/21 Rx tab dulaglutide 3 mg/0.5 mL 3 mg SUBCUT DIRECTED 04/26/21 11/20/22 11/20/22 History subcutaneous pen injector (Trulicity) Intraoperative Neuromonitoring #1 ea 11/18/22 11/20/22 Unknown Rx empagliflozin 10 mg tablet mg PO DAILY 11/20/22 11/20/22 11/21/22 History (Jardiance) Allergies Allergy/AdvReac Type Severity Reaction Status Date / Time ibuprofen Allergy Intermediate ALGY-Hives Verified 11/20/22 15:32 naproxen [From Aleve] Allergy Intermediate ALGY-Rash Verified 11/20/22 15:32 Penicillins Allergy Intermediate ALGY-Hives Verified 11/20/22 15:32 milnacipran [From Savella] Allergy ALGY-Swell Verified 11/22/22 06:01 Lip/Tongue/Throat lisinopril AdvReac ALGY-Swell Verified 11/20/22 15:32 Lip/Tongue/Throat Current Medications Generic Name Dose Route Start Last Admin Trade Name Freq PRN Reason Stop Dose Admin Sodium Chloride 1,000 mls @ 30 mls/hr 11/22/22 06:00 11/22/22 06:21 Sodium Chloride 0.9% IV 11/23/22 05:59 30 mls/hr .Q24H JUAN Administration PFSH Anesthesia Medical History Cervical spinal stenosis With cervical radicular pain and cervical spondylosis COPD (chronic obstructive pulmonary disease) GERD (gastroesophageal reflux disease) Greater trochanteric bursitis of both hips Hyperlipidemia Hypertension Lumbar spinal stenosis Osteoarthritis of right hip Type 2 diabetes mellitus Insulin-dependent Surgical History History of carpal tunnel release History of hysterectomy Status post hemilaminotomy Family History Other Unknown family medical history Social History Smoking and tobacco status: current every day smoker cigarettes Packs smoked per day: 0.25 Alcohol intake: never Data Anesthesia 11/20/22 13:25 BMP 11/20/22 13:25 Sodium 133 L Potassium 3.8 Chloride 98 Carbon Dioxide 26 BUN 14 Creatinine 0.6 Glucose 185 H Calcium 9.0 Cardiac Studies: No Data to Display
[2022-11-22] MEDS: clindamycin 900 MG/50 ML PREMIX 100 MG IV (06:57)
[2022-11-22] MEDS: lidocaine-epi 1% 20 mL INJ INJECTION (07:29)
--- NOTE | 2022-11-22 08:50 | P.OP_ITS ---
Operative Report Date of procedure: November 22, 2022 Pre-op diagnosis: Preop Diagnosis Cervical spondylosis with myelopathy Post-op diagnosis: same Procedure done: 1. Anterior discectomy C6/7 2. Insertion of Cage C6/7 3. Instrumentation with anterior plate from C6-C7 4. Use of allograft Surgeon: Matoe Hester Adobe Cq Developer: Elmo Lucero Adobe Cq Developer: The certified physical therapist assistant, Elmo Lucero, PAC was needed for his expertise under the microscope. He was important and necessary throughout the procedure to complete in a safe and timely manner. He assisted with patient positioning prepping and draping tissue retraction suctioning of the operative field protection of the dural sac and tissue closure Estimated blood loss (mL): 25 Procedure: 1. Anterior discectomy C6/7 2. Insertion of Cage C6/7 3. Instrumentation with anterior plate from C6-C7 4. Use of allograft The patient was taken to the operating room, where he underwent general endotracheal anesthesia without complications. He was then positioned supine on the operating table, and all areas of impingement were well padded. The arms were carefully padded and tucked at his sides. A roll was placed between the shoulder blades.. An x-ray was done to determine the appropriate level for the skin incision. The entire neck was then sterilely prepped and draped in the ua fashion. Neuromonitoring was attached prior to prepping. A transverse skin incision was made and carried down to the platysma muscle. This was then split in line with its fibers. Blunt dissection was carried down medial to the carotid sheath and lateral to the trachea and esophagus until the anterior cervical spine was visualized. A needle was placed into a disc and an x-ray was done to determine its location. The longus colli muscles were then elevated bilaterally with the electrocautery unit. Self-retaining retractors were placed deep to the longus colli muscle. Attention was brought to the C6/7 level that was confirmed on x-ray. A caspar pin was placed into the C6 vertebrae and the C7 vertebrae. The disk space was then distracted. The microscope was then brought in. A radical anterior discectomies were performed at C6/7. This included complete removal of the anterior annulus, nucleus, and posterior annulus. The posterior longitudinal ligament was removed as were the posterior osteophytes. Foraminotomies were then accomplished bilaterally. This was done using a high speed nilesh, kerrison rongeurs and curretes Once all of this was accomplished, the curved currette was used to check for any residual compression. The central canal was wide open as were the foramen. A high-speed bur was used to remove the cartilaginous endplates above and below the interspace. Bleeding cancellous bone was exposed. The disc space were measured and appropriate size cage were placed sterilely onto the field. Allograft graft was packed into the cages. The cage was then placed and there w as good juxtaposition against the bleeding decorticated surfaces and good distraction of each interspace. The Ringling pins were removed. Bone wax was used to prevent any bleeding from occurring at the pin sites. The appropriate size anterior cervical locking plate was chosen and bent into gentle lordosis. Two screws were then placed into each of the vertebral bodies at C6 and C7. There was excellent purchase. A final x-ray was done confirming good position of the hardware and Cages. The locking screws were then applied, also with excellent purchase. Following a final copious irrigation, there was good hemostasis and no dural leaks. The carotid pulse was strong. The wounds were then closed in layers using 2-0 Vicryl suture for the platysma muscle, 2-0 Vicryl suture for the subcutaneous tissue, and 4-0 monocryl suture in a subcuticular skin closure. Glue was placed followed by application of a sterile dressing. The drain was hooked to bulb suction. A soft collar was applied. The patient was then carefully returned to the supine position on his hospital bed where he was reversed and extubated and taken to the recovery room having tolerated the procedure well.
[2022-11-22] MEDS: oxyCODONE 20 mg ER (12 HR) Tablet PO (09:29)
--- NOTE | 2022-11-22 18:05 | ANE.PACU2 ---
Inpatient post-anesthesia follow up: Airway intact: Yes Vital signs: Temperature 97.9 F Pulse Rate 72 Respiratory Rate 18 Blood Pressure 138/92 Pulse Oximetry 94 Oxygen Delivery Me thod Room Air Oxygen Flow Rate 6 Fraction of Inspir ed Oxygen Hydration adequate: Yes Nausea and vomiting: No Pain level: 1 Mental status: Baseline
== END 2022-11-22 10:45 | disposition home or self-care (01) ==
PROVIDERS: Anesthesiology; PCP Nurse Practitioner Family; Visit Provider Orthopaedic Surgery
PROC: 0RB30ZZ Excision of Cervical Vertebral Disc, Open Approach (ICD-10-PCS; CPT 22551; principal; 2022-11-22 07:00)
DX: M47.12 Other spondylosis with myelopathy, cervical region (principal); J44.9 Chronic obstructive pulmonary disease, unspecified; G47.30 Sleep apnea, unspecified; E11.9 Type 2 diabetes mellitus without complications; E66.01 Morbid (severe) obesity due to excess calories; Z68.36 Body mass index [BMI] 36.0-36.9, adult; Z79.84 Long term (current) use of oral hypoglycemic drugs; K21.9 Gastro-esophageal reflux disease without esophagitis; E78.5 Hyperlipidemia, unspecified; I10 Essential (primary) hypertension; F17.210 Nicotine dependence, cigarettes, uncomplicated
CPT/HCPCS: 20930; 22551; 22845; 22853; 36416; 72020; 76000; 80048; 82962; C1713; C9359; J0131; J0330; J1100; J1170; J1200; J2250; J2370; J2405; J2704; J2710; J3010; J3490; J3535; J7030; L0172

== ENCOUNTER → 2022-12-03 14:13 | Outpatient (BNVA) | payer MEDICAID, SELFPAY | PROVIDERS: PCP Nurse Practitioner Family; Visit Provider Physician Assistant | DX: Z98.1 Arthrodesis status (principal) | CPT/HCPCS: 72040; 99024 ==

== ENCOUNTER → 2023-01-09 13:33 | Outpatient (BNVA) | payer MEDICAID, SELFPAY | PROVIDERS: PCP Nurse Practitioner Family; Visit Provider Physician Assistant | DX: Z98.1 Arthrodesis status (principal) | CPT/HCPCS: 72040; 99024 ==